=== PATIENT | male | born 1955 | race Caucasian/White ===

== ENCOUNTER 2016-10-26 20:40 | Inpatient (IN) | payer MEDICARE, BC ==
[2016-10-26] MEDS ORDERED: Albuterol 0.083% 2.5 MG/3 ML Neb Soln NEB ONE (21:24)
[2016-10-27] MEDS ORDERED: Furosemide 20 MG Tab PO PRN (00:23)
[2016-10-27] MEDS ORDERED: HYDROmorphone 1 MG/ML Syringe IVPUSH PRN (00:23)
[2016-10-27] MEDS ORDERED: Ipratropium 0.02% 0.5 MG/2.5 ML Neb Soln NEB PRN (00:23)
[2016-10-27] MEDS ORDERED: Docusate Sodium 100 MG Cap PO PRN (00:23)
[2016-10-27] MEDS ORDERED: Zolpidem 5 MG Tab PO PRN (00:23)
[2016-10-27] MEDS ORDERED: Acetaminophen/HYDROcodone 325-5 MG Tab PO PRN (00:23)
[2016-10-27] MEDS ORDERED: LORazepam 2 MG/ML MDV IV PRN (00:23)
[2016-10-27] MEDS ORDERED: Albuterol 0.083% 2.5 MG/3 ML Neb Soln NEB PRN (00:23)
[2016-10-27] MEDS ORDERED: Acetaminophen 325 MG Tab PO PRN (00:23)
[2016-10-27] MEDS ORDERED: Bisacodyl 5 MG Tab PO PRN (00:23)
[2016-10-27] MEDS ORDERED: Ondansetron 4 MG Tab.DIS PO PRN (00:23)
[2016-10-27] MEDS: Sodium Chloride 0.9% 1,000 ML IV SCH ×3 (01:24→22:05)
[2016-10-27] MEDS: Levofloxacin/Dextrose 5%-Water 500 MG in Premix Bag 1 BAG IV SCH (01:26)
[2016-10-27] MEDS ORDERED: Albuterol/Ipratropium 3.0-0.5 MG/3 ML Neb Soln NEB PRN (07:18)
[2016-10-27] MEDS: Albuterol/Ipratropium 3.0-0.5 MG/3 ML Neb Soln NEB SCH ×4 (07:33→21:04)
[2016-10-27] MEDS: Carvedilol 25 MG Tab PO SCH ×2 (08:40→17:45)
[2016-10-27] MEDS: Citalopram 20 MG Tab PO SCH (08:41)
[2016-10-27] MEDS: Enoxaparin 40 MG/0.4 ML Syringe SUBCUT SCH (08:47)
--- NOTE | 2016-10-27 08:49 | CR ---
Chest 2V HISTORY: Pain COMPARISON: Prior CT chest scan 02/19/2016. Plain film 01/31/2016 FINDINGS: Borderline interstitial prominence with tiny pleural effusions blunting the posterior cost ophrenic angles. This may represent mild pulmonary edema. No dense infiltrate. Hyperinflation. Cardi ac size normal. Impression: Slight interstitial prominence with tiny effusions, could represent very minimal pulmonary edema. No dense infiltrate.
[2016-10-27] MEDS ORDERED: methylPREDNISolone Sodium Succinate 125 MG/2 ML SDV IV SCH ×2 (09:00)
[2016-10-27] MEDS ORDERED: Pantoprazole 40 MG Vial IVPUSH SCH (09:00)
--- NOTE | 2016-10-27 09:03 | PCM.HP ---
H&P History of Present Illness - General Date of Service: 10/26/16 Admit Problem/Dx: Admission Diagnosis/Problem Admission Diagnosis/Problem COPD, Severe chronic obstructive pulmonary disease Source of Information: Patient, Family () History Limitations: Reports: Altered mental status - History of Present Illness Initial Comments - Free Text/Narative: COPD with confusion; this is a 60 year old male presents to ER with his , she reports he has been sick for the past 2 to 3 weeks with a bad cold, which has gotten worse. Today noted increase use of oxygen, confusion. His baseline oxygen saturation is about 86% to 88%, today was 83%. Due to his new onset of confusion, increased shortness of breath, worsen oxygen saturation and increase of maintenance oxygen, he was brought to ER. labs; ABG's elveated CO2, decrease O2 chest xray; report pending. no acute infiltrate noted. Onset of Symptoms: Reports: sudden (onset of confusion and worsen shortness of breath today), gradual (respiratory illness for 2 to 3 weeks.) Duration of Symptoms: Reports: Getting worse Location: Reports: chest, generalized Improves with: Reports: None Worsens with: Reports: None Context: Reports: sick contact Associated Symptoms: Reports: confusion, cough, fever/chills, shortness of breath, weakness Back Pain Score (Numeric/FACES): 5 - Related Data Allergies/Adverse Reactions: Allergies Allergy/AdvReac Type Severity Reaction Status Date / Time metformin Allergy Hives Verified 10/26/16 20:48 Penicillins Allergy Cannot Verified 10/26/16 20:48 Remember zolpidem tartrate Allergy Other Verified 10/26/16 20:48 [From Ambien] Home Medications: Home Meds Citalopram Hydrobromide [Citalopram HBr] 20 mg PO QAM 06/23/14 [History] Diazepam 10 mg PO TID 06/23/14 [History] Furosemide 20 mg PO QAM PRN 06/23/14 [History] Pramipexole [Mirapex] 1 mg PO BEDTIME 06/23/14 [History] atorvaSTATin [Lipitor] 40 mg PO BEDTIME 06/23/14 [History] Insulin Glarg,Human.Rec.Analog [Lantus Solostar] 53 unit SQ BEDTIME 06/16/15 [ History] Clopidogrel [Plavix] 75 mg PO QAM 04/05/16 [History] glyBURIDE [Glyburide] 5 mg PO QPM 12/01/15 [History] Carvedilol [Coreg] 25 mg PO BIDMEALS 01/31/16 [History] Past Medical History HEENT History: Reports: Cataract, Impaired vision Cardiovascular History: Reports: Aneurysm, Hypertension Other Cardiovascular History: angiogram-- 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 years Respiratory History: Reports: Bronchitis, recurrent, COPD Gastrointestinal History: Reports: GI bleed Other Gastrointestinal History: throwing up coffee grounds Genitourinary History: Reports: Other (see below) Other Genitourinary History: kidney removed- enlarged Musculoskeletal History: Reports: Back pain, chronic, Osteoarthritis, Other ( see below) Other Musculoskeletal History: herniated disc Neurological History: Reports: Concussion, Vertigo Psychiatric History: Reports: Anxiety, Depression Endocrine/Metabolic History: Reports: Diabetes, type II, Obesity/BMI 30+ - Infectious Disease History Infectious Disease History: Reports: Chicken pox - Past Surgical History Head Surgeries/Procedures: Reports: None Other HEENT Surgeries/Procedures: thyroid bx Other Cardiovascular Surgeries/Procedures: angiogram CT with dye to check AAA enlarging 02/19/16 GI Surgical History: Reports: Hernia repair/other Male Surgical History: Reports: Nephrectomy Endocrine Surgical History: Reports: Thyroid biopsy Other Endocrine Surgeries/Procedures: thyroid bx Other Musculoskeletal Surgeries/Procedures:: rotator cuff x2 Social & Family History - Tobacco Use Smoking Status *Q: Former Smoker Years of Tobacco use: 20 Packs/Tins Daily: 1 Used Tobacco, but Quit: Yes Month Tobacco Last Used: december Second Hand Smoke Exposure: No - Caffeine Use Caffeine Use: Reports: None - Alcohol Use Days Per Week of Alcohol Use: 0 - Recreational Drug Use Recreational Drug Use: No H&P Review of Systems - Review of Systems: Review Of Systems: Unable To Obtain General: Reports: fever (per patient felt warm and flushed all day), weakness, decreased appetite HEENT: Reports: sinus congestion Pulmonary: Reports: shortness of breath, cough Cardiovascular: Reports: dyspnea on exertion, orthopnea Gastrointestinal: Reports: No symptoms Genitourinary: Reports: no symptoms Musculoskeletal: Reports: no symptoms Skin: Reports: change in color Psychiatric: Reports: confusion Neurological: Reports: confusion Hematologic/Lymphatic: Reports: no symptoms Immunologic: Reports: no symptoms Exam - Exam Exam: See Below - Vital Signs Vital Signs: Last Vital Signs Temp 36.2 C 10/27/16 08:35 Pulse 67 10/27/16 08:40 Resp 20 10/27/16 08:35 BP 130/74 10/27/16 08:40 Pulse Ox 89 L 10/27/16 08:35 Weight: 150.956 kg - Exam Quality Assessment: supplemental oxygen, DVT prophylaxis General: alert, cooperative, moderate distress HEENT: PERRLA, Conjunctiva clear, EACs clear, Hearing intact, Mucosa moist & pink, Nares patent, Normal nasal septum, Posterior pharynx clear, Pupils equal, Pupils reactive, TMs clear Neck: supple, trachea midline Lungs: Decreased breath sounds (very decreased airway clearance., no wheezing, crackles or rhonchi noted.) Cardiovascular: regular rate, regular rhythm, normal S1, normal S2, other ( heart tones distant) Abdomen: normal bowel sounds, soft (Male) Exam: Deferred Rectal (Males) Exam: Deferred Extremities: normal inspection Skin: warm, dry, intact, other (pallor noted) Neurological: reflexes equal bilateral Neuro Extensive - Mental Status: alert, inattentive Psychiatric: alert, other (short term memory impaired. care home intact) - Patient Data Lab Results last 24 hrs: Laboratory Results - last 24 hr 10/27/16 10/27/16 Range/Units 05:00 05:00 WBC 10.7 (4.5-11.0) K/uL RBC 4.51 (4.30-5.90) M/uL Hgb 14.4 (12.0-15.0) g/dL Hct 45.0 (40.0-54.0) % MCV 100 H (80-98) fL MCH 32 H (27-31) pg MCHC 32 (32-36) % Plt Count 196 (150-400) K/uL Neut % (Auto) 91 H (36-66) % Lymph % (Auto) 7 L (24-44) % [place] % (Auto) 2 (2-6) % Eos % (Auto) 1 L (2-4) % Baso % (Auto) 0 (0-1) % Sodium 137 L (140-148) mmol/L Potassium 4.6 (3.6-5.2) mmol/L Chloride 100 (100-108) mmol/L Carbon Dioxide 34 H (21-32) mmol/L Anion Gap 7.6 (5.0-14.0) mmol/L BUN 14 (7-18) mg/dL Creatinine 0.9 (0.8-1.3) mg/dL Est Cr Clr Drug Dosing 92.96 mL/min Estimated GFR (MDRD) > 60 (>60) Glucose 172 H (74-106) mg/dL Calcium 8.1 L (8.5-10.1) mg/dL Result Diagrams: 10/27/16 05:00 10/27/16 05:00 *Q Meaningful Use (ADM) - VTE *Q VTE Criteria *Q: - Stroke *Q Stroke Criteria *Q: - AMI *Q AMI Criteria *Q: - Problem List (1) COPD exacerbation SNOMED Code(s): 756078204, 363567378 ICD Code: J44.1 - CHRONIC OBSTRUCTIVE PULMONARY DISEASE W (ACUTE) EXACERBATION Status: Acute Priority: High Current Visit: Yes (2) Diabetes mellitus, new onset SNOMED Code(s): 764879290 ICD Code: E11.9 - TYPE 2 DIABETES MELLITUS WITHOUT COMPLICATIONS Status: Chronic Priority: High Current Visit: No (3) Thoracic aortic aneurysm SNOMED Code(s): 772091169 ICD Code: I71.2 - THORACIC AORTIC ANEURYSM, WITHOUT RUPTURE Status: Chronic Priority: Medium Current Visit: No Qualifiers: Presence of rupture: without rupture Qualified Code(s): I71.2 - Thoracic aortic aneurysm, without rupture (4) Congestive heart failure (CHF) SNOMED Code(s): 57334495 ICD Code: I50.9 - HEART FAILURE, UNSPECIFIED Status: Acute Current Visit : Yes Qualifiers: Congestive heart failure type: unspecified congestive heart failure type Congestive heart failure chronicity: chronic Qualified Code(s): I50.9 - Heart failure, unspecified Problem List Initiated/Reviewed/Updated: Yes Orders Last 24hrs: Active Orders 24 hr Category Date Time Status Patient Status [ADT] Routine ADT 10/27/16 00:23 Active Communication Order [RC] ASDIRECTED Care 10/27/16 00:23 Active Communication Order [RC] ASDIRECTED Care 10/27/16 01:54 Active Intake and Output [RC] QSHIFT Care 10/27/16 00:23 Active Notify Provider Vital Signs [RC] ASDIRECTED Care 10/27/16 00:23 Active Notify Provider [RC] PRN Care 10/27/16 00:23 Active Oxygen Therapy [RC] PRN Care 10/27/16 00:23 Active Pulse Oximetry [RC] CONTINUOUS Care 10/27/16 00:23 Active Up ad Mia [RC] ASDIRECTED Care 10/27/16 00:23 Active VTE/DVT Education [RC] Per Unit Routine Care 10/27/16 00:23 Active Vital Signs [RC] Q4H Care 10/27/16 00:23 Active Respiratory Care Assess and Treatment [CONS] Routine Cons 10/27/16 00:23 Active 2 Gram Sodium Diet [DIET] Diet 10/27/16 Breakfast Active Consistent Carbohydrate Diet [DIET] Diet 10/27/16 Breakfast Active GLUCOSE POC LAB TO COLLECT [POC] QIDACANDBED Lab 10/27/16 11:30 Ordered GLUCOSE POC LAB TO COLLECT [POC] QIDACANDBED Lab 10/27/16 16:30 Ordered GLUCOSE POC LAB TO COLLECT [POC] QIDACANDBED Lab 10/27/16 21:00 Ordered Acetaminophen [Tylenol] Med 10/27/16 00:23 Active 650 mg PO Q4H PRN Acetaminophen/HYDROcodone [[place] 325-5 MG] Med 10/27/16 00:23 Active 2 tab PO Q4H PRN Albuterol [Proventil Neb Soln] Med 10/27/16 00:23 Active 2.5 mg NEB Q4H PRN Albuterol/Ipratropium [DuoNeb 3.0-0.5 MG/3 ML] Med 10/27/16 07:18 Active 3 ml NEB ASDIRECTED PRN Albuterol/Ipratropium [DuoNeb 3.0-0.5 MG/3 ML] Med 10/27/16 07:00 Active 3 ml NEB QIDRT Bisacodyl [Dulcolax] Med 10/27/16 00:23 Active 5 mg PO DAILY PRN Carvedilol [Coreg] Med 10/27/16 08:00 Active 25 mg PO BIDMEALS Citalopram [Celexa] Med 10/27/16 09:00 Active 20 mg PO QAM Diazepam [Valium] Med 10/27/16 09:00 Active 10 mg PO TID Docusate Sodium [Colace] Med 10/27/16 00:23 Active 100 mg PO BID PRN Enoxaparin [Lovenox] Med 10/27/16 09:00 Active 40 mg SUBCUT DAILY Furosemide [Lasix] Med 10/27/16 00:23 Active 20 mg PO QAM PRN HYDROmorphone [Dilaudid] Med 10/27/16 00:23 Active 1 mg IVPUSH Q2H PRN Insulin Detemir [Levemir] Med 10/27/16 21:00 Active 53 unit SUBCUT BEDTIME Ipratropium [Atrovent] Med 10/27/16 00:23 Active 0.2 mg NEB Q4H PRN LORazepam [Ativan] Med 10/27/16 00:23 Active 1 mg IV Q6H PRN Levofloxacin/Dextrose 5%-Water [Levaquin in D5W 500 MG/ Med 10/27/16 01:00 Active 100 ML] 500 mg Premix Bag 1 bag IV Q24H Ondansetron [Zofran ODT] Med 10/27/16 00:23 Active 4 mg PO Q6H PRN Pantoprazole [Protonix IV] Med 10/27/16 09:00 Ordered 40 mg IVPUSH DAILY Pramipexole [Mirapex] Med 10/27/16 21:00 Active 1 mg PO BEDTIME Sodium Chloride 0.9% [Normal Saline] 1,000 ml Med 10/27/16 00:23 Active IV ASDIRECTED atorvaSTATin [Lipitor] Med 10/27/16 21:00 Active 40 mg PO BEDTIME glyBURIDE [Micronase] Med 10/27/16 17:00 Active 5 mg PO QPM methylPREDNISolone Sod Succ [Solu-MEDROL] Med 10/27/16 09:00 Active 125 mg IV Q8H Blood Culture x2 Reflex Set [OM.PC] Urgent Oth 10/27/16 00:23 Ordered Sequential Compression Device [OM.PC] Per Unit Routine Oth 10/27/16 00:23 Ordered Resuscitation Status Routine Resus Stat 10/26/16 23:50 Ordered Medication Orders Acetaminophen (Tylenol) 650 mg PO Q4H PRN PRN Reason: Pain (Mild 1-3)/fever Acetaminophen/Hydrocodone Bitart ([place] 325-5 Mg) 2 tab PO Q4H PRN PRN Reason: Pain (moderate 4-6) Albuterol (Proventil Neb Soln) 2.5 mg NEB Q4H PRN PRN Reason: Shortness Of Breath;wheezing Albuterol/Ipratropium (Duoneb 3.0-0.5 Mg/3 Ml) 3 ml NEB QIDRT [facility] Last Admin: 10/27/16 07:33 Dose: 3 ml Albuterol/Ipratropium (Duoneb 3.0-0.5 Mg/3 Ml) 3 ml NEB ASDIRECTED PRN PRN Reason: SHORTNESS OF BREATH Atorvastatin Calcium (Lipitor) 40 mg PO BEDTIME [facility] Bisacodyl (Dulcolax) 5 mg PO DAILY PRN PRN Reason: Constipation Carvedilol (Coreg) 25 mg PO BIDMEALS [facility] Last Admin: 10/27/16 08:40 Dose: 25 mg Citalopram Hydrobromide (Celexa) 20 mg PO QAM [facility] Last Admin: 10/27/16 08:41 Dose: 20 mg Diazepam (Valium.) 10 mg PO TID [facility] Docusate Sodium (Colace) 100 mg PO BID PRN PRN Reason: Constipation Enoxaparin Sodium (Lovenox) 40 mg SUBCUT DAILY [facility] Last Admin: 10/27/16 08:47 Dose: 40 mg Furosemide (Lasix) 20 mg PO QAM PRN PRN Reason: Other Glyburide (Micronase) 5 mg PO QPM [facility] Hydromorphone HCl (Dilaudid) 1 mg IVPUSH Q2H PRN PRN Reason: Pain Sodium Chloride (Normal Saline) 1,000 mls @ 100 mls/hr IV ASDIRECTED [facility] Last Admin: 10/27/16 01:24 Dose: 100 mls/hr Levofloxacin/Dextrose 500 mg/ (Premix) 100 mls @ 100 mls/hr IV Q24H [facility] Stop: 11/03/16 01:01 Last Admin: 10/27/16 01:26 Dose: 100 mls/hr Insulin Detemir (Levemir) 53 unit SUBCUT BEDTIME [facility] Ipratropium [place] (Atrovent) 0.2 mg NEB Q4H PRN PRN Reason: Shortness of Breath/Wheezing Lorazepam (Ativan) 1 mg IV Q6H PRN PRN Reason: Nausea/Vomiting Methylprednisolone Sodium Succinate (Solu-Medrol) 125 mg IV Q8H [facility] Last Admin: 10/27/16 08:52 Dose: 125 mg Ondansetron HCl (Zofran Odt) 4 mg PO Q6H PRN PRN Reason: Nausea able to take PO Pantoprazole Sodium (Protonix Iv) 40 mg IVPUSH DAILY [facility] Pramipexole Dihydrochloride (Mirapex) 1 mg PO BEDTIME [facility] Assessment/Plan Comment:: ASSESSMENT / PLAN -This is a 60 year old male present to ER with complaints of worsen shortness of breath and confusion COPD with confusion; this is a 60 year old male presents to ER with his , she reports he has been sick for the past 2 to 3 weeks with a bad cold, which has gotten worse. Today noted increase use of oxygen, confusion. His baseline oxygen saturation is about 86% to 88%, today was 83%. Due to his new onset of confusion, increased shortness of breath, worsen oxygen saturation and increase of maintenance oxygen, he was brought to ER. labs; ABG's elveated CO2, decrease O2 chest xray; report pending. no acute infiltrate noted. Plan: COPD exacerbation -Admit to [address] [place] [address] for further monitoring -order Bi-Pap -Solu-medrol 125mg IV every 8 hours -albuterol nebulizer -duo nebs -Levaquin 50mg IV every 24 hours, blood cultures pending -IV fluids at 125ml/hr -a.m. labs: CBC, BMP, will need repeat ABG's CHF -Telemetry -continue diuretics -Advise to notify nurses of any chest pain or other symptoms Diabetes Type 2 -sliding scale insulin; medium coverage -blood glucose with meals and hs Thoracic Anurysm -continue to monitor, stable Maintenance issues -Orders home meds: -Nutrition: diabetic diet -Mane catheter not indicated at this time -DVT: Lovenox 40mg subcut daily -GI Prophalaxis; Protonix 40 mg daily CODE STATUS: Full Admission status: Admit to [address] [place] [address] Admission justification. This patient will be admitted for inpatient services and is medically appropriate meeting medical necessity for inpatient admission as outlined in my documentation. I reasonably expect the patient will require inpatient services that span. Time over 2 midnights. I reasonably expect this patient to be discharged or transferred within 96 hours after admission to the critical access hospital. Disposition; home with , Jayashree Barcenas Primary care provider: Dr. Garcia
[2016-10-27] MEDS: Diazepam 5 MG Tab PO SCH ×3 (10:07→21:00)
[2016-10-27] MEDS: Insulin Aspart 100 Units/ML 3 ML Pen SUBCUT SCH ×3 (10:08→21:13)
[2016-10-27] MEDS: oxyCODONE 5 MG Tab PO PRN ×3 (10:10→18:54)
--- NOTE | 2016-10-27 11:21 | PCM.PN ---
- General Info Date of Service: 10/27/16 Functional Status: Reports: pain controlled, tolerating diet - Review of Systems General: Reports: weakness Pulmonary: Reports: shortness of breath, cough, sputum Neurological: Reports: confusion Systems Review Comment:: Philip was admitted last night with acute hypoxic and hypercapnic respiratory failure. It was not entirely clear if this was infectious or do to congestive heart failure. Further questioning this morning suggests respiratory infection with possible subtle pneumonia versus bronchitis. Subjective fevers, increased cough and sputum have been noted at home. He does have chronic lower extremity edema but this appears to be stable. ABGs have improved this morning with PCO2 down to 51. PH is nearly normal suggesting this may be close to his baseline. He feels better but still feels a little short of breath and weak. - Patient Data Vitals - most recent: Last Vital Signs Temp 36.4 C 10/27/16 10:31 Pulse 59 L 10/27/16 11:16 Resp 18 10/27/16 10:31 BP 141/75 H 10/27/16 10:31 Pulse Ox 86 L 10/27/16 11:16 Weight - most recent: 150.956 kg I&O - last 24 hours: Intake & Output 10/26/16 10/27/16 10/27/16 22:59 06:59 14:59 Intake Total 493 240 Output Total 500 Balance -7 240 Lab Results last 24 hrs: Laboratory Results - last 24 hr 10/27/16 10/27/16 10/27/16 Range/Units 05:00 05:00 09:28 WBC 10.7 (4.5-11.0) K/uL RBC 4.51 (4.30-5.90) M/uL Hgb 14.4 (12.0-15.0) g/dL Hct 45.0 (40.0-54.0) % MCV 100 H (80-98) fL MCH 32 H (27-31) pg MCHC 32 (32-36) % Plt Count 196 (150-400) K/uL Neut % (Auto) 91 H (36-66) % Lymph % (Auto) 7 L (24-44) % [place] % (Auto) 2 (2-6) % Eos % (Auto) 1 L (2-4) % Baso % (Auto) 0 (0-1) % Puncture Site Rt radial ABG pH 7.385 (7.350-7.450) ABG pCO2 51.7 H (35.0-42.0) mmHg ABG pO2 51.9 L (75.0-100.0) mmHg ABG HCO3 30.3 H (22.0-26.0) mmol/L ABG Total CO2 26.7 (23.0-27.0) mmol/L ABG O2 Saturation 85.2 L (95.0-98.0) % ABG O2 Content 16.8 (15.0-23.0) %vol ABG Base Excess 4.4 mm/L ABG Hemoglobin 14.4 (13.5-18.0) g/dL ABG Oxyhemoglobin 82.9 % ABG Carboxyhemoglobin 2.3 H (0.0-1.6) % ABG Methemoglobin 0.4 % Chase Test Passed O2 Delivery Device Nasal cannula Oxygen Flow Rate 2 L Sodium 137 L (140-148) mmol/L Potassium 4.6 (3.6-5.2) mmol/L Chloride 100 (100-108) mmol/L Carbon Dioxide 34 H (21-32) mmol/L Anion Gap 7.6 (5.0-14.0) mmol/L BUN 14 (7-18) mg/dL Creatinine 0.9 (0.8-1.3) mg/dL Est Cr Clr Drug Dosing 92.96 mL/min Estimated GFR (MDRD) > 60 (>60) Glucose 172 H (74-106) mg/dL Calcium 8.1 L (8.5-10.1) mg/dL Med Orders - Current: Current Medications Acetaminophen (Tylenol) 650 mg PO Q4H PRN PRN Reason: Pain (Mild 1-3)/fever Albuterol (Proventil Neb Soln) 2.5 mg NEB Q4H PRN PRN Reason: Shortness Of Breath;wheezing Albuterol/Ipratropium (Duoneb 3.0-0.5 Mg/3 Ml) 3 ml NEB QIDRT [facility] Last Admin: 10/27/16 11:16 Dose: 3 ml Albuterol/Ipratropium (Duoneb 3.0-0.5 Mg/3 Ml) 3 ml NEB ASDIRECTED PRN PRN Reason: SHORTNESS OF BREATH Atorvastatin Calcium (Lipitor) 40 mg PO BEDTIME [facility] Bisacodyl (Dulcolax) 5 mg PO DAILY PRN PRN Reason: Constipation Carvedilol (Coreg) 25 mg PO BIDMEALS [facility] Last Admin: 10/27/16 08:40 Dose: 25 mg Citalopram Hydrobromide (Celexa) 20 mg PO QAM [facility] Last Admin: 10/27/16 08:41 Dose: 20 mg Diazepam (Valium.) 10 mg PO TID [facility] Last Admin: 10/27/16 10:07 Dose: 10 mg Docusate Sodium (Colace) 100 mg PO BID PRN PRN Reason: Constipation Enoxaparin Sodium (Lovenox) 40 mg SUBCUT DAILY [facility] Last Admin: 10/27/16 08:47 Dose: 40 mg Furosemide (Lasix) 20 mg PO QAM PRN PRN Reason: Other Glyburide (Micronase) 5 mg PO QPM [facility] Hydromorphone HCl (Dilaudid) 1 mg IVPUSH Q2H PRN PRN Reason: Pain Sodium Chloride (Normal Saline) 1,000 mls @ 100 mls/hr IV ASDIRECTED [facility] Last Admin: 10/27/16 01:24 Dose: 100 mls/hr Levofloxacin/Dextrose 500 mg/ (Premix) 100 mls @ 100 mls/hr IV Q24H [facility] Stop: 11/03/16 01:01 Last Admin: 10/27/16 01:26 Dose: 100 mls/hr Insulin Aspart (Novolog) 0 unit SUBCUT QIDACANDBED [facility] PRN Reason: Protocol Last Admin: 10/27/16 10:08 Dose: 6 unit Insulin Detemir (Levemir) 53 unit SUBCUT BEDTIME [facility] Ipratropium [place] (Atrovent) 0.2 mg NEB Q4H PRN PRN Reason: Shortness of Breath/Wheezing Lorazepam (Ativan) 1 mg IV Q6H PRN PRN Reason: Nausea/Vomiting Methylprednisolone Sodium Succinate (Solu-Medrol) 125 mg IV Q8H [facility] Last Admin: 10/27/16 08:52 Dose: 125 mg Ondansetron HCl (Zofran Odt) 4 mg PO Q6H PRN PRN Reason: Nausea able to take PO Oxycodone HCl (Oxycodone) 10 mg PO Q4H PRN PRN Reason: Pain Last Admin: 10/27/16 10:10 Dose: 10 mg Pantoprazole Sodium (Protonix) 40 mg PO ACBREAKFAST [facility] Pramipexole Dihydrochloride (Mirapex) 1 mg PO BEDTIME [facility] Discontinued Medications Acetaminophen/Hydrocodone Bitart ([place] 325-5 Mg) 2 tab PO Q4H PRN PRN Reason: Pain (moderate 4-6) Albuterol (Proventil Neb Soln) 2.5 mg NEB ONETIME ONE Stop: 10/26/16 21:25 Last Admin: 10/26/16 21:38 Dose: 2.5 mg Methylprednisolone Sodium Succinate (Solu-Medrol) 125 mg IV Q8H [facility] Last Admin: 10/27/16 01:24 Dose: 125 mg Pantoprazole Sodium (Protonix Iv) 40 mg IVPUSH DAILY@0730 [facility] Stop: 10/27/16 10:00 Last Admin: 10/27/16 10:07 Dose: 40 mg - Exam Quality Assessment: supplemental oxygen General: alert, oriented, cooperative, no acute distress Neck: supple Lungs: Clear to auscultation, Normal respiratory effort Cardiovascular: regular rate, regular rhythm, murmurs (llsb) Abdomen: soft, no distension Extremities: edema (pitting edema both ankles with chronic venous stasis) Skin: warm, dry Psy/Mental Status: alert, normal affect - Problem List & Annotations (1) Acute bronchitis SNOMED Code(s): 80907056 Code(s): J20.9 - ACUTE BRONCHITIS, UNSPECIFIED Status: Acute Current Visit: Yes Qualifiers: Bronchitis organism: unspecified organism Qualified Code(s): J20.9 - Acute bronchitis, unspecified (2) Acute respiratory failure with hypoxia and hypercapnia SNOMED Code(s): 39448275, 093416842 Code(s): J96.01 - ACUTE RESPIRATORY FAILURE WITH HYPOXIA; J96.02 - ACUTE RESPIRATORY FAILURE WITH HYPERCAPNIA Status: Acute Current Visit: Yes (3) Insulin dependent diabetes mellitus SNOMED Code(s): 26988321 Code(s): E11.9 - TYPE 2 DIABETES MELLITUS WITHOUT COMPLICATIONS; 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 OF INSULIN Status: Chronic Current Visit: Yes (4) Morbid obesity with BMI of 45.0-49.9, adult SNOMED Code(s): 728394931 Code(s): E66.01 - MORBID (SEVERE) OBESITY DUE TO EXCESS CALORIES; Z68.42 - BODY MASS INDEX (BMI) 45.0-49.9, ADULT Status: Chronic Current Visit: No - Problem List Review Problem List Initiated/Reviewed/Updated: Yes - My Orders Last 24 Hours: My Active Orders 10/27/16 09:28 oxyCODONE 10 mg PO Q4H PRN 10/27/16 09:29 Consult to Dietary [Consult to Skein Winding Operator] [CONS] Routine 10/27/16 11:00 Insulin Aspart [NovoLOG] See Protocol SUBCUT QIDACANDBED 10/28/16 05:00 BASIC METABOLIC PANEL,BMP [CHEM] Timed BLOOD GAS ARTERIAL [BG] Timed CBC W/O DIFF,HEMOGRAM [HEME] Timed (1) - Plan Plan:: ASSESSMENT / PLAN Acute bronchitis - I cannot definitively identify an infiltrate on the chest x- ray but at the very least he has bronchitis with acute hypoxic and hypercapnic respiratory failure. No significant wheezing at this time. probably some contribution to his respiratory failure from obstructive sleep apnea versus possibly a hypoventilation syndrome. Confusion probably combination of hypercapnia and infection. -Continue levofloxacin -Supplement oxygen as needed -Nebulizers Heart failure with preserved ejection fraction - long-standing history with chronic lower tremor the edema. No evidence for acute exacerbation. -Telemetry -continue medical management -continue diuretics Diabetes Type 2 - suboptimally controlled. -sliding scale insulin; medium coverage -continue all meds -blood glucose with meals and bedtime Maintenance issues -Nutrition: diabetic diet -Mane catheter not indicated at this time -DVT: enoxaparin 40mg subcut daily -GI Prophalaxis; pantoprazole 40 mg daily Disposition; home with , Jayashree Barcenas Primary care provider: Dr. Jose Kc M.D.
[2016-10-27] MEDS: methylPREDNISolone Sodium Succinate 125 MG/2 ML SDV IV SCH (17:45)
[2016-10-27] MEDS: atorvaSTATin 20 MG Tab PO SCH (20:53)
[2016-10-27] MEDS: Pramipexole 0.5 MG Tab PO SCH (20:53)
[2016-10-27] MEDS ORDERED: Insulin Detemir 100 Units/ML 3 ML Pen SUBCUT SCH (21:00)
[2016-10-27] MEDS: Insulin Detemir 100 Units/ML 3 ML Pen SUBCUT SCH (21:12)
[2016-10-28] MEDS: methylPREDNISolone Sodium Succinate 125 MG/2 ML SDV IV SCH ×2 (00:54→08:32)
[2016-10-28] MEDS: Levofloxacin/Dextrose 5%-Water 500 MG in Premix Bag 1 BAG IV SCH (00:54)
[2016-10-28] MEDS: oxyCODONE 5 MG Tab PO PRN ×5 (03:00→21:35)
[2016-10-28] MEDS: Albuterol/Ipratropium 3.0-0.5 MG/3 ML Neb Soln NEB SCH ×4 (07:15→21:01)
[2016-10-28] MEDS: Carvedilol 25 MG Tab PO SCH ×2 (07:23→16:46)
[2016-10-28] MEDS: Pantoprazole 40 MG Tab.CR PO SCH (07:23)
[2016-10-28] MEDS: Insulin Aspart 100 Units/ML 3 ML Pen SUBCUT SCH ×4 (07:26→21:36)
[2016-10-28] MEDS: Enoxaparin 40 MG/0.4 ML Syringe SUBCUT SCH (08:32)
[2016-10-28] MEDS: Citalopram 20 MG Tab PO SCH (08:32)
[2016-10-28] MEDS: Diazepam 5 MG Tab PO SCH ×3 (08:36→21:01)
[2016-10-28] MEDS: Sodium Chloride 0.9% 1,000 ML IV SCH (11:36)
--- NOTE | 2016-10-28 12:18 | PCM.PN ---
- General Info Date of Service: 10/28/16 Functional Status: Reports: pain controlled, tolerating diet, ambulating - Review of Systems Pulmonary: Reports: shortness of breath Musculoskeletal: Reports: back pain Systems Review Comment:: no acute events overnight. Respiratory status seems a little bit better today. Patient is more clear and more interactive today. Mild intermittent cough. He does not feel shortness of breath with activity. He is tolerating his current antibiotic. Lower extremity edema is slightly increased from yesterday. Appetite has been okay.patient continues to report significant pain in his back into his knee. He does endorse that these are chronic issues and have been painful for some time but does not have access to pain medications. - Patient Data Vitals - most recent: Last Vital Signs Temp 36.1 C 10/28/16 11:03 Pulse 64 10/28/16 11:09 Resp 18 10/28/16 07:10 BP 150/83 H 10/28/16 11:03 Pulse Ox 90 L 10/28/16 11:09 Weight - most recent: 150.956 kg I&O - last 24 hours: Intake & Output 10/27/16 10/28/16 10/28/16 22:59 06:59 14:59 Intake Total 1420 1514 240 Output Total 1525 1125 450 Balance -105 389 -210 Lab Results last 24 hrs: Laboratory Results - last 24 hr 10/28/16 10/28/16 10/28/16 Range/Units 05:00 05:00 05:00 WBC 9.0 (4.5-11.0) K/uL RBC 4.26 L (4.30-5.90) M/uL Hgb 13.4 (12.0-15.0) g/dL Hct 42.0 (40.0-54.0) % MCV 99 H (80-98) fL MCH 32 H (27-31) pg MCHC 32 (32-36) % Plt Count 189 (150-400) K/uL Puncture Site Lt radial ABG pH 7.338 L (7.350-7.450) ABG pCO2 58.6 H (35.0-42.0) mmHg ABG pO2 56.8 L (75.0-100.0) mmHg ABG HCO3 30.6 H (22.0-26.0) mmol/L ABG Total CO2 27.6 H (23.0-27.0) mmol/L ABG O2 Saturation 86.2 L (95.0-98.0) % ABG O2 Content 16.1 (15.0-23.0) %vol ABG Base Excess 3.7 mm/L ABG Hemoglobin 13.6 (13.5-18.0) g/dL ABG Oxyhemoglobin 84.0 % ABG Carboxyhemoglobin 1.8 H (0.0-1.6) % ABG Methemoglobin 0.7 % Chase Test Passed O2 Delivery Device Nasal cannula Oxygen Flow Rate 2 L Sodium 137 L (140-148) mmol/L Potassium 4.7 (3.6-5.2) mmol/L Chloride 101 (100-108) mmol/L Carbon Dioxide 32 (21-32) mmol/L Anion Gap 8.7 (5.0-14.0) mmol/L BUN 18 (7-18) mg/dL Creatinine 0.9 (0.8-1.3) mg/dL Est Cr Clr Drug Dosing 90.12 mL/min Estimated GFR (MDRD) > 60 (>60) Glucose 263 H (74-106) mg/dL Calcium 7.9 L (8.5-10.1) mg/dL Med Orders - Current: Current Medications Acetaminophen (Tylenol) 650 mg PO Q4H PRN PRN Reason: Pain (Mild 1-3)/fever Albuterol (Proventil Neb Soln) 2.5 mg NEB Q4H PRN PRN Reason: Shortness Of Breath;wheezing Albuterol/Ipratropium (Duoneb 3.0-0.5 Mg/3 Ml) 3 ml NEB QIDRT [facility] Last Admin: 10/28/16 11:08 Dose: 3 ml Albuterol/Ipratropium (Duoneb 3.0-0.5 Mg/3 Ml) 3 ml NEB ASDIRECTED PRN PRN Reason: SHORTNESS OF BREATH Atorvastatin Calcium (Lipitor) 40 mg PO BEDTIME [facility] Last Admin: 10/27/16 20:53 Dose: 40 mg Bisacodyl (Dulcolax) 5 mg PO DAILY PRN PRN Reason: Constipation Carvedilol (Coreg) 25 mg PO BIDMEALS [facility] Last Admin: 10/28/16 07:23 Dose: 25 mg Citalopram Hydrobromide (Celexa) 20 mg PO QAM [facility] Last Admin: 10/28/16 08:32 Dose: 20 mg Diazepam (Valium.) 10 mg PO TID [facility] Last Admin: 10/28/16 08:36 Dose: 10 mg Docusate Sodium (Colace) 100 mg PO BID PRN PRN Reason: Constipation Enoxaparin Sodium (Lovenox) 40 mg SUBCUT DAILY [facility] Last Admin: 10/28/16 08:32 Dose: 40 mg Furosemide (Lasix) 20 mg PO QAM PRN PRN Reason: Other Glyburide (Micronase) 5 mg PO QPM [facility] Last Admin: 10/27/16 17:45 Dose: 5 mg Levofloxacin/Dextrose 500 mg/ (Premix) 100 mls @ 100 mls/hr IV Q24H [facility] Stop: 11/03/16 01:01 Last Admin: 10/28/16 00:54 Dose: 100 mls/hr Insulin Aspart (Novolog) 0 unit SUBCUT QIDACANDBED [facility] PRN Reason: Protocol Last Admin: 10/28/16 11:37 Dose: 8 unit Insulin Detemir (Levemir) 53 unit SUBCUT BEDTIME [facility] Last Admin: 10/27/16 21:12 Dose: 53 units Ipratropium [place] (Atrovent) 0.2 mg NEB Q4H PRN PRN Reason: Shortness of Breath/Wheezing Lorazepam (Ativan) 1 mg IV Q6H PRN PRN Reason: Nausea/Vomiting Ondansetron HCl (Zofran Odt) 4 mg PO Q6H PRN PRN Reason: Nausea able to take PO Oxycodone HCl (Oxycodone) 10 mg PO Q4H PRN PRN Reason: Pain Last Admin: 10/28/16 12:13 Dose: 10 mg Pantoprazole Sodium (Protonix) 40 mg PO ACBREAKFAST [facility] Last Admin: 10/28/16 07:23 Dose: 40 mg Pramipexole Dihydrochloride (Mirapex) 1 mg PO BEDTIME [facility] Last Admin: 10/27/16 20:53 Dose: 1 mg Discontinued Medications Acetaminophen/Hydrocodone Bitart ([place] 325-5 Mg) 2 tab PO Q4H PRN PRN Reason: Pain (moderate 4-6) Albuterol (Proventil Neb Soln) 2.5 mg NEB ONETIME ONE Stop: 10/26/16 21:25 Last Admin: 10/26/16 21:38 Dose: 2.5 mg Hydromorphone HCl (Dilaudid) 1 mg IVPUSH Q2H PRN PRN Reason: Pain Last Admin: 10/27/16 21:05 Dose: 1 mg Sodium Chloride (Normal Saline) 1,000 mls @ 100 mls/hr IV ASDIRECTED [facility] Last Admin: 10/28/16 11:36 Dose: 100 mls/hr Methylprednisolone Sodium Succinate (Solu-Medrol) 125 mg IV Q8H [facility] Last Admin: 10/27/16 01:24 Dose: 125 mg Methylprednisolone Sodium Succinate (Solu-Medrol) 125 mg IV Q8H [facility] Last Admin: 10/27/16 08:52 Dose: 125 mg Methylprednisolone Sodium Succinate (Solu-Medrol) 62.5 mg IV Q8H [facility] Last Admin: 10/28/16 08:32 Dose: 62.5 mg Pantoprazole Sodium (Protonix Iv) 40 mg IVPUSH DAILY@0730 [facility] Stop: 10/27/16 10:00 Last Admin: 10/27/16 10:07 Dose: 40 mg - Exam Quality Assessment: supplemental oxygen General: alert, oriented, cooperative, no acute distress Neck: supple Lungs: Clear to auscultation, Normal respiratory effort Cardiovascular: regular rate, regular rhythm, murmurs Extremities: no cyanosis, edema (pitting lower ext edema to the mid oden bilaterally ) Skin: warm, dry Psy/Mental Status: alert, normal affect - Problem List & Annotations (1) Acute bronchitis SNOMED Code(s): 06594840 Code(s): J20.9 - ACUTE BRONCHITIS, UNSPECIFIED Status: Acute Current Visit: Yes Qualifiers: Bronchitis organism: unspecified organism Qualified Code(s): J20.9 - Acute bronchitis, unspecified (2) Acute respiratory failure with hypoxia and hypercapnia SNOMED Code(s): 41017530, 964988980 Code(s): J96.01 - ACUTE RESPIRATORY FAILURE WITH HYPOXIA; J96.02 - ACUTE RESPIRATORY FAILURE WITH HYPERCAPNIA Status: Acute Current Visit: Yes (3) Insulin dependent diabetes mellitus SNOMED Code(s): 21171362 Code(s): E11.9 - TYPE 2 DIABETES MELLITUS WITHOUT COMPLICATIONS; Z79.4 - NURSING HOME (CURRENT) USE OF INSULIN Status: Chronic Current Visit: Yes (4) Morbid obesity with BMI of 45.0-49.9, adult SNOMED Code(s): 795255030 Code(s): E66.01 - MORBID (SEVERE) OBESITY DUE TO EXCESS CALORIES; Z68.42 - BODY MASS INDEX (BMI) 45.0-49.9, ADULT Status: Chronic Current Visit: No - Problem List Review Problem List Initiated/Reviewed/Updated: Yes - My Orders Last 24 Hours: My Active Orders 10/27/16 16:56 Discontinue Telemetry Monitoring [Cardiac Monitoring Discontinue] [RC] Click to Edit 10/28/16 09:27 RT Acapella [RESPCARE] Routine 10/28/16 12:13 Furosemide [Lasix] 20 mg IVPUSH NOW ONE 10/28/16 12:14 Convert IV to Saline Lock [OM.PC] Routine 10/28/16 16:30 predniSONE 20 mg PO BIDAC 10/29/16 05:00 BLOOD GAS ARTERIAL [BG] Timed - Plan Plan:: ASSESSMENT / PLAN Acute bronchitis with mild COPD exacerbation - I cannot definitively identify an infiltrate on the chest x-ray but at the very least he has bronchitis with acute hypoxic and hypercapnic respiratory failure. clinically improved. Still requiring supplemental oxygen. -Continue levofloxacin -cont steroids -Supplement oxygen as needed -Nebulizers Heart failure with preserved ejection fraction - long-standing history with chronic lower extremity edema. No evidence for acute exacerbation. -continue medical management -continue diuretics Diabetes Type 2 - suboptimally controlled while on steroids. -sliding scale insulin; medium coverage -continue all meds -blood glucose with meals and bedtime Maintenance issues -Nutrition: diabetic diet -Mane catheter not indicated at this time -DVT: enoxaparin 40mg subcut daily -GI Prophalaxis; pantoprazole 40 mg daily Disposition; home with , Jayashree Barcenas Georges Kc M.D.
[2016-10-28] MEDS ORDERED: Furosemide 20 MG/2 ML VIAL IVPUSH ONE (13:00)
[2016-10-28] MEDS: predniSONE 20 MG Tab PO SCH (16:45)
[2016-10-28] MEDS: atorvaSTATin 20 MG Tab PO SCH (20:58)
[2016-10-28] MEDS: Pramipexole 0.5 MG Tab PO SCH (20:58)
[2016-10-28] MEDS ORDERED: Insulin Aspart 100 Units/ML 3 ML Pen SUBCUT ONE (21:09)
--- NOTE | 2016-10-28 21:16 | PCM.SN ---
- Free Text/Narrative Note: time 2105: call 2 [place]; blood glucose 386 a; hyperglycemia p; order Novolog 15 unit subcut. now. continue present plan of care.
[2016-10-28] MEDS: Insulin Detemir 100 Units/ML 3 ML Pen SUBCUT SCH (21:31)
[2016-10-29] MEDS: Levofloxacin/Dextrose 5%-Water 500 MG in Premix Bag 1 BAG IV SCH (02:29)
[2016-10-29] MEDS: Albuterol/Ipratropium 3.0-0.5 MG/3 ML Neb Soln NEB SCH ×4 (07:22→21:24)
[2016-10-29] MEDS: predniSONE 20 MG Tab PO SCH ×2 (07:44→16:24)
[2016-10-29] MEDS: Pantoprazole 40 MG Tab.CR PO SCH (07:44)
[2016-10-29] MEDS: Insulin Aspart 100 Units/ML 3 ML Pen SUBCUT SCH ×4 (07:54→21:12)
[2016-10-29] MEDS: Carvedilol 25 MG Tab PO SCH (07:59)
[2016-10-29] MEDS ORDERED: Diazepam 5 MG Tab PO PRN (09:29)
[2016-10-29] MEDS: Enoxaparin 40 MG/0.4 ML Syringe SUBCUT SCH ×2 (09:46→10:23)
[2016-10-29] MEDS: Citalopram 20 MG Tab PO SCH ×2 (09:47→10:21)
[2016-10-29] MEDS: Diazepam 5 MG Tab PO SCH (10:06)
[2016-10-29] MEDS: Carvedilol 12.5 MG Tab PO SCH ×2 (10:22→16:27)
[2016-10-29] MEDS: oxyCODONE 5 MG Tab PO PRN ×3 (10:45→21:11)
--- NOTE | 2016-10-29 10:51 | PCM.PN ---
- General Info Date of Service: 10/29/16 Functional Status: Reports: pain controlled, ambulating - Review of Systems General: Denies: fever Pulmonary: Reports: shortness of breath Neurological: Reports: confusion Systems Review Comment:: No acute events overnight. This morning patient was noted to be somnolence and a little confused. Blood gases collected with morning rounds revealed a PCO2 of 68. Noninvasive ventilation was reinitiated at this time. He still seems a little confused but is otherwise stable. Other vital signs have been stable. No complaints of pain other than his chronic back pain. He has not been having any fevers. Lower extremity edema has improved with diuresis. - Patient Data Vitals - most recent: Last Vital Signs Temp 35.8 C 10/29/16 07:17 Pulse 58 L 10/29/16 10:22 Resp 16 10/29/16 07:17 BP 123/73 10/29/16 10:22 Pulse Ox 90 L 10/29/16 07:17 Weight - most recent: 150.956 kg I&O - last 24 hours: Intake & Output 10/28/16 10/29/16 10/29/16 22:59 06:59 14:59 Intake Total 480 100 Output Total 1300 1025 Balance -820 -925 Lab Results last 24 hrs: Laboratory Results - last 24 hr 10/29/16 Range/Units 05:00 Puncture Site Lt radial ABG pH 7.306 L (7.350-7.450) ABG pCO2 64.5 H (35.0-42.0) mmHg ABG pO2 61.0 L (75.0-100.0) mmHg ABG HCO3 31.2 H (22.0-26.0) mmol/L ABG Total CO2 28.4 H (23.0-27.0) mmol/L ABG O2 Saturation 88.0 L (95.0-98.0) % ABG O2 Content 16.3 (15.0-23.0) %vol ABG Base Excess 3.5 mm/L ABG Hemoglobin 13.5 (13.5-18.0) g/dL ABG Oxyhemoglobin 86.2 % ABG Carboxyhemoglobin 1.5 (0.0-1.6) % ABG Methemoglobin 0.5 % Chase Test Passed O2 Delivery Device Nasal cannula Oxygen Flow Rate 2 L Med Orders - Current: Current Medications Acetaminophen (Tylenol) 650 mg PO Q4H PRN PRN Reason: Pain (Mild 1-3)/fever Albuterol (Proventil Neb Soln) 2.5 mg NEB Q4H PRN PRN Reason: Shortness Of Breath;wheezing Albuterol/Ipratropium (Duoneb 3.0-0.5 Mg/3 Ml) 3 ml NEB QIDRT [facility] Last Admin: 10/29/16 07:22 Dose: 3 ml Albuterol/Ipratropium (Duoneb 3.0-0.5 Mg/3 Ml) 3 ml NEB ASDIRECTED PRN PRN Reason: SHORTNESS OF BREATH Atorvastatin Calcium (Lipitor) 40 mg PO BEDTIME [facility] Last Admin: 10/28/16 20:58 Dose: 40 mg Bisacodyl (Dulcolax) 5 mg PO DAILY PRN PRN Reason: Constipation Carvedilol (Coreg) 12.5 mg PO BIDMEALS [facility] Last Admin: 10/29/16 10:22 Dose: 12.5 mg Citalopram Hydrobromide (Celexa) 20 mg PO QAM [facility] Last Admin: 10/29/16 10:21 Dose: 20 mg Diazepam (Valium.) 10 mg PO TID PRN PRN Reason: Anxiety Docusate Sodium (Colace) 100 mg PO BID PRN PRN Reason: Constipation Enoxaparin Sodium (Lovenox) 40 mg SUBCUT DAILY [facility] Last Admin: 10/29/16 10:23 Dose: 40 mg Furosemide (Lasix) 20 mg PO QAM PRN PRN Reason: Other Glyburide (Micronase) 5 mg PO QPM [facility] Last Admin: 10/28/16 16:44 Dose: 5 mg Levofloxacin/Dextrose 500 mg/ (Premix) 100 mls @ 100 mls/hr IV Q24H [facility] Stop: 11/03/16 01:01 Last Admin: 10/29/16 02:29 Dose: 100 mls/hr Insulin Aspart (Novolog) 0 unit SUBCUT QIDACANDBED [facility] PRN Reason: Protocol Last Admin: 10/29/16 07:54 Dose: 4 unit Insulin Detemir (Levemir) 53 unit SUBCUT BEDTIME [facility] Last Admin: 10/28/16 21:31 Dose: 53 units Ipratropium [place] (Atrovent) 0.2 mg NEB Q4H PRN PRN Reason: Shortness of Breath/Wheezing Ondansetron HCl (Zofran Odt) 4 mg PO Q6H PRN PRN Reason: Nausea able to take PO Oxycodone HCl (Oxycodone) 10 mg PO Q4H PRN PRN Reason: Pain Last Admin: 10/29/16 10:45 Dose: 10 mg Pantoprazole Sodium (Protonix) 40 mg PO ACBREAKFAST [facility] Last Admin: 10/29/16 07:44 Dose: 40 mg Pramipexole Dihydrochloride (Mirapex) 1 mg PO BEDTIME [facility] Last Admin: 10/28/16 20:58 Dose: 1 mg Prednisone (Prednisone) 20 mg PO BIDAC [facility] Last Admin: 10/29/16 07:44 Dose: 20 mg Discontinued Medications Acetaminophen/Hydrocodone Bitart ([place] 325-5 Mg) 2 tab PO Q4H PRN PRN Reason: Pain (moderate 4-6) Albuterol (Proventil Neb Soln) 2.5 mg NEB ONETIME ONE Stop: 10/26/16 21:25 Last Admin: 10/26/16 21:38 Dose: 2.5 mg Carvedilol (Coreg) 25 mg PO BIDMEALS [facility] Last Admin: 10/29/16 07:59 Dose: Not Given Diazepam (Valium.) 10 mg PO TID [facility] Last Admin: 10/29/16 10:06 Dose: Not Given Furosemide (Lasix) 20 mg IVPUSH NOW ONE Stop: 10/28/16 13:01 Last Admin: 10/28/16 13:35 Dose: 20 mg Hydromorphone HCl (Dilaudid) 1 mg IVPUSH Q2H PRN PRN Reason: Pain Last Admin: 10/27/16 21:05 Dose: 1 mg Sodium Chloride (Normal Saline) 1,000 mls @ 100 mls/hr IV ASDIRECTED [facility] Last Admin: 10/28/16 11:36 Dose: 100 mls/hr Insulin Aspart (Novolog) 15 unit SUBCUT ONETIME ONE Stop: 10/28/16 21:10 Last Admin: 10/28/16 21:32 Dose: 15 units Lorazepam (Ativan) 1 mg IV Q6H PRN PRN Reason: Nausea/Vomiting Methylprednisolone Sodium Succinate (Solu-Medrol) 125 mg IV Q8H [facility] Last Admin: 10/27/16 01:24 Dose: 125 mg Methylprednisolone Sodium Succinate (Solu-Medrol) 125 mg IV Q8H [facility] Last Admin: 10/27/16 08:52 Dose: 125 mg Methylprednisolone Sodium Succinate (Solu-Medrol) 62.5 mg IV Q8H [facility] Last Admin: 10/28/16 08:32 Dose: 62.5 mg Pantoprazole Sodium (Protonix Iv) 40 mg IVPUSH DAILY@0730 [facility] Stop: 10/27/16 10:00 Last Admin: 10/27/16 10:07 Dose: 40 mg - Exam Quality Assessment: supplemental oxygen General: alert, cooperative, no acute distress Neck: supple Lungs: Clear to auscultation, Normal respiratory effort Cardiovascular: regular rate, regular rhythm, murmurs Abdomen: soft, no distension Extremities: no cyanosis, edema (pitting edema both lower legs to near knee) Skin: warm, dry Psy/Mental Status: alert, normal affect - Problem List & Annotations (1) Acute bronchitis SNOMED Code(s): 26532613 Code(s): J20.9 - ACUTE BRONCHITIS, UNSPECIFIED Status: Acute Current Visit: Yes Qualifiers: Bronchitis organism: unspecified organism Qualified Code(s): J20.9 - Acute bronchitis, unspecified (2) Acute respiratory failure with hypoxia and hypercapnia SNOMED Code(s): 44095526, 624856784 Code(s): J96.01 - ACUTE RESPIRATORY FAILURE WITH HYPOXIA; J96.02 - ACUTE RESPIRATORY FAILURE WITH HYPERCAPNIA Status: Acute Current Visit: Yes (3) Insulin dependent diabetes mellitus SNOMED Code(s): 83856497 Code(s): E11.9 - TYPE 2 DIABETES MELLITUS WITHOUT COMPLICATIONS; Z79.4 - [facility] (CURRENT) USE OF INSULIN Status: Chronic Current Visit: Yes (4) Morbid obesity with BMI of 45.0-49.9, adult SNOMED Code(s): 867820179 Code(s): E66.01 - MORBID (SEVERE) OBESITY DUE TO EXCESS CALORIES; Z68.42 - BODY MASS INDEX (BMI) 45.0-49.9, ADULT Status: Chronic Current Visit: No - Problem List Review Problem List Initiated/Reviewed/Updated: Yes - My Orders Last 24 Hours: My Active Orders 10/28/16 12:14 Convert IV to Saline Lock [OM.PC] Routine 10/28/16 16:30 predniSONE 20 mg PO BIDAC 10/29/16 09:29 Diazepam [Valium] 10 mg PO TID PRN 10/29/16 10:00 Carvedilol [Coreg] 12.5 mg PO BIDMEALS 10/29/16 15:00 Furosemide [Lasix] 20 mg IVPUSH ONETIME ONE 10/30/16 05:00 BASIC METABOLIC PANEL,BMP [CHEM] Timed BLOOD GAS ARTERIAL [BG] Timed CBC W/O DIFF,HEMOGRAM [HEME] Timed (1) - Plan Plan:: ASSESSMENT / PLAN Acute bronchitis with mild COPD exacerbation - possibly some contribution from volume. CO2 level has risen again today and he is sick enough that he is willing to wear the noninvasive ventilation mask. Tolerating antibiotics and diuresis. Clinically fairly stable at this point but still intermittently needing the noninvasive ventilation. -Continue levofloxacin -cont steroids -Supplement oxygen as needed -Nebulizers Heart failure with preserved ejection fraction - long-standing history with chronic lower extremity edema. No evidence for acute exacerbation. -continue medical management -continue diuretics Chronic respiratory failure - patient has history of COPD further complicated by obesity and possibly hypoventilation. He is on chronic supplemental oxygen therapy and has ABGs that document significant hypercapnia on several occasions. I believe that he would benefit from a home ventilation system to help with chronic respiratory failure and probable chronic hypoxia and hypercapnia. -Complete paperwork for home ventilation system through [facility] Diabetes Type 2 - suboptimally controlled while on steroids. -sliding scale insulin; high-dose coverage -continue all meds -blood glucose with meals and bedtime Maintenance issues -Nutrition: diabetic diet -Mane catheter not indicated at this time -DVT: enoxaparin 40mg subcut daily -GI Prophalaxis; pantoprazole 40 mg daily Disposition; home with , Jayashree Barcenas Georges Kc M.D.
[2016-10-29] MEDS ORDERED: Furosemide 20 MG/2 ML VIAL IVPUSH ONE (15:00)
[2016-10-29] MEDS: Insulin Detemir 100 Units/ML 3 ML Pen SUBCUT SCH (21:13)
[2016-10-29] MEDS: Pramipexole 0.5 MG Tab PO SCH (21:16)
[2016-10-29] MEDS: atorvaSTATin 20 MG Tab PO SCH (21:16)
[2016-10-30] MEDS: Levofloxacin/Dextrose 5%-Water 500 MG in Premix Bag 1 BAG IV SCH (01:08)
[2016-10-30] MEDS: oxyCODONE 5 MG Tab PO PRN ×3 (02:50→12:11)
[2016-10-30] MEDS: Insulin Aspart 100 Units/ML 3 ML Pen SUBCUT SCH ×2 (07:27→12:00)
[2016-10-30] MEDS: predniSONE 20 MG Tab PO SCH (07:28)
[2016-10-30] MEDS: Pantoprazole 40 MG Tab.CR PO SCH (07:28)
[2016-10-30] MEDS: Albuterol/Ipratropium 3.0-0.5 MG/3 ML Neb Soln NEB SCH ×2 (07:34→10:58)
[2016-10-30] MEDS: Citalopram 20 MG Tab PO SCH (08:49)
[2016-10-30] MEDS: Enoxaparin 40 MG/0.4 ML Syringe SUBCUT SCH (08:49)
[2016-10-30 10:49] VITALS: BP 160/84
[2016-10-30] MEDS: Carvedilol 12.5 MG Tab PO SCH (11:02)
--- NOTE | 2016-10-30 13:56 | PCM.DCSUM1 ---
Discharge Summary - Hospital Course Brief History: 60-year-old male with history of COPD, chronic back pain, heart failure with preserved ejection fraction and obesity who presented with confusion, shortness of breath and cough. He was admitted for management of acute bronchitis and acute exacerbation of COPD. - Discharge Data Discharge Date: 10/30/16 Discharge Disposition: Home, Self-Care 01 Condition: Fair - Discharge Diagnosis/Problem(s) (1) Acute bronchitis SNOMED Code(s): 11153148 ICD Code: J20.9 - ACUTE BRONCHITIS, UNSPECIFIED Status: Acute Qualifiers: Bronchitis organism: unspecified organism Qualified Code(s): J20.9 - Acute bronchitis, unspecified (2) Acute respiratory failure with hypoxia and hypercapnia SNOMED Code(s): 00647743, 743443668 ICD Code: J96.01 - ACUTE RESPIRATORY FAILURE WITH HYPOXIA; J96.02 - ACUTE RESPIRATORY FAILURE WITH HYPERCAPNIA Status: Acute (3) Insulin dependent diabetes mellitus SNOMED Code(s): 87244143 ICD Code: E11.9 - TYPE 2 DIABETES MELLITUS WITHOUT COMPLICATIONS; Z79.4 - RESIDENTIAL (CURRENT) USE OF INSULIN Status: Chronic (4) Morbid obesity with BMI of 45.0-49.9, adult SNOMED Code(s): 962842159 ICD Code: E66.01 - MORBID (SEVERE) OBESITY DUE TO EXCESS CALORIES; Z68.42 - BODY MASS INDEX (BMI) 45.0-49.9, ADULT Status: Chronic (5) Chronic respiratory failure with hypoxia and hypercapnia SNOMED Code(s): 99264728, 031264672 ICD Code: J96.11 - CHRONIC RESPIRATORY FAILURE WITH HYPOXIA; J96.12 - CHRONIC RESPIRATORY FAILURE WITH HYPERCAPNIA Status: Chronic - Patient Summary/Data Consults: Consultations 10/27/16 00:23 Respiratory Care Assess and Treatment [CONS] Routine Comment: start now Physician Instructions: bi-pap Reason for Consult: hypoxia Special Instructions: start Bi-Pap while sleeping. 10/27/16 09:29 Consult to Dietary [Consult to Special Programs Director] [CONS] Routine Comment: Physician Instructions: Quantity: Reason for Consult: diabetic diet recs Hospital Course: Philip presented to the emergency room with increasing cough, shortness of breath and confusion. Workup in the emergency room was suggestive of acute bronchitis with a COPD exacerbation. He was also found to have significant hypercapnia based on arterial blood gas testing. He was admitted to the hospital and started on levofloxacin for management of the respiratory infection. He was also started on noninvasive positive pressure ventilation overnight to help blow off some of the carbon dioxide. By the morning after admission he has shown some clinical improvement but he does remain a little bit confused from baseline. His PCO2 has improved on blood gas testing. He is still doing a fair amount of coughing and feels weak compared to baseline. Steroids and antibiotics were continued. He did not use the noninvasive ventilation during the next day or overnight and his PCO2 level milad back to nearly his admission level at 71. He was agreeable to using the noninvasive ventilation that morning and had a better day. He did use it overnight that following night and had improvement in his PCO2. Mental status has seemed to return to baseline. He has not had significant confusion when he does use the noninvasive ventilation. He used it intermittently throughout the night prior to discharge and has been improving but not quite back to baseline PCO2 level. I suspect that his baseline level is in the upper 40s based on acid base balance. He will need for additional days of antibiotic therapy with levofloxacin and 2 additional days of therapy with his prednisone for the COPD exacerbation. There was also probably at least a small component of volume overload leading to his respiratory compromise he has responded well to an increase in his diuretics. I believe he is safe for outpatient management at this time. We did set him up for a home nebulizer to help with his management of his COPD and acute exacerbation. Given his apparent chronic hypercapnia based on arterial blood gas testing coupled with his chronic respiratory failure requiring supplemental oxygen we did set him up for a home ventilation system through [facility]. I think this would provide significant benefit to his respiratory status and hopefully improve his quality of life and sleep as well. Also in [place] during the hospital stay was some difficulty with his chronic back pain. She was very interested in returning to his previous doses of narcotics including long-acting narcotics. He has not been prescribed these in quite some time after his pain contract was terminated. I had several discussions with him about why I didn't think this was a good idea. He has done quite well and his even reinforced this after his narcotics were discontinued. I discussed the concerns about his respiratory status while on narcotics. I was agreeable to give him a few days to help make his transition home because she's been dealing with increased back pain while in the hospital. He will be following up with his primary care provider later this week. - Patient Instructions Diet: Diabetic Diet Activity: As Tolerated Driving: Do Not Drive (if taking pain pills) Showering/Bathing: May Shower Notify Provider of: Fever, Increased Pain, Nausea and/or Vomiting Other/Special Instructions: 1. You were in the hospital for management of acute bronchitis as well as an exacerbation of your chronic obstructive pulmonary disease. I recommend additional antibiotic therapy and steroid therapy as mentioned below. You should continue to use your home oxygen as previously prescribed. We did also set you up for a home ventilation system to help reduce your carbon dioxide levels. [facility] will be providing your equipment this afternoon. -Takes levofloxacin 750 mg once daily at bedtime for 4 more days. This is an antibiotic used to treat the upper respiratory infection. - Take prednisone 20 mg twice daily with meals (breakfast and supper) for 5 more doses. Your first dose is due tonight with supper. This is an anti- inflammatory used to help reduce inflammation in your lungs caused by the infection. -use DuoNeb's 4 times daily until your respiratory status improves. This inhaled medicine can help improve your lung function and make your breathing easier. 2. Please utilize the home ventilation system nightly and with naps to help reduce your carbon dioxide levels in your blood. You will receive additional information about this equipment from [facility]. 3. Please seek medical attention if you develop fever greater than 101, sudden onset of shortness of breath and or if your confusion worsens. 4. Follow up with Dr Garcia at the end of the week to make sure that your breathing continues to improve. - Discharge Plan Prescriptions/Med Rec: Albuterol/Ipratropium [DuoNeb 3.0-0.5 MG/3 ML] 3 ml NEB QIDRT #120 neb Levofloxacin 750 mg PO BEDTIME #4 tablet Prednisone [IJD: predniSONE] 20 mg PO BIDAC #5 tablet oxyCODONE 10 mg PO Q4H PRN #20 tablet PRN Reason: Pain (Severe 7-10) Home Medications: Home Meds Citalopram Hydrobromide [Citalopram HBr] 20 mg PO QAM 06/23/14 [History] Diazepam 10 mg PO TID 06/23/14 [History] Furosemide 20 mg PO QAM PRN 06/23/14 [History] Pramipexole [Mirapex] 1 mg PO BEDTIME 06/23/14 [History] atorvaSTATin [Lipitor] 40 mg PO BEDTIME 06/23/14 [History] Insulin Glarg,Human.Rec.Analog [Lantus Solostar] 53 unit SQ BEDTIME 06/16/15 [ History] Clopidogrel [Plavix] 75 mg PO QAM 12/01/15 [History] glyBURIDE [Glyburide] 5 mg PO QPM 12/01/15 [History] Carvedilol [Coreg] 25 mg PO BIDMEALS 01/31/16 [History] Albuterol/Ipratropium [DuoNeb 3.0-0.5 MG/3 ML] 3 ml NEB QIDRT #120 neb 10/30/16 [Rx] Levofloxacin 750 mg PO BEDTIME #4 tablet 10/30/16 [Rx] Prednisone [IJD: predniSONE] 20 mg PO BIDAC #5 tablet 10/30/16 [Rx] oxyCODONE 10 mg PO Q4H PRN #20 tablet 10/30/16 [Rx] Patient Handouts: Chronic Obstructive Pulmonary Disease Exacerbation, Chronic Respiratory Failure Referrals: Volodymyr Garcia MD [Primary Care Provider] - (1 week - f/u or monday - f/u hospital stay for bronchitis with copd exacerbation ) - Discharge Summary/Plan Comment DC Time >30 min.: Yes (45 - coordinating outpatient equipment and counseling ) - Patient Data Vitals - Most Recent: Last Vital Signs Temp 36.7 C 10/30/16 11:22 Pulse 106 H 10/30/16 11:12 Resp 18 10/30/16 10:48 BP 160/84 H 10/30/16 11:02 Pulse Ox 89 L 10/30/16 10:48 Weight - Most Recent: 150.956 kg I&O - Last 24 hours: Intake & Output 10/29/16 10/30/16 10/30/16 22:59 06:59 14:59 Intake Total 500 100 960 Output Total 1600 600 400 Balance -1100 -500 560 Lab Results - Last 24 hrs: Laboratory Results - last 24 hr 10/30/16 10/30/16 10/30/16 Range/Units 05:00 06:03 06:03 WBC 8.3 (4.5-11.0) K/uL RBC 4.23 L (4.30-5.90) M/uL Hgb 13.1 (12.0-15.0) g/dL Hct 42.6 (40.0-54.0) % MCV 101 H (80-98) fL MCH 31 (27-31) pg MCHC 31 L (32-36) % Plt Count 151 (150-400) K/uL Puncture Site Lt radial ABG pH 7.368 (7.350-7.450) ABG pCO2 55.3 H (35.0-42.0) mmHg ABG pO2 55.0 L (75.0-100.0) mmHg ABG HCO3 31.0 H (22.0-26.0) mmol/L ABG Total CO2 27.9 H (23.0-27.0) mmol/L ABG O2 Saturation 86.6 L (95.0-98.0) % ABG O2 Content 15.7 (15.0-23.0) %vol ABG Base Excess 4.8 mm/L ABG Hemoglobin 13.3 L (13.5-18.0) g/dL ABG Oxyhemoglobin 84.1 % ABG Carboxyhemoglobin 2.5 H (0.0-1.6) % ABG Methemoglobin 0.4 % Chase Test Passed O2 Delivery Device Nasal cannula Oxygen Flow Rate L Sodium 140 (140-148) mmol/L Potassium 3.9 (3.6-5.2) mmol/L Chloride 103 (100-108) mmol/L Carbon Dioxide 33 H (21-32) mmol/L Anion Gap 7.9 (5.0-14.0) mmol/L BUN 22 H (7-18) mg/dL Creatinine 0.9 (0.8-1.3) mg/dL Est Cr Clr Drug Dosing 90.12 mL/min Estimated GFR (MDRD) > 60 (>60) Glucose 125 H (74-106) mg/dL Calcium 7.7 L (8.5-10.1) mg/dL Med Orders - Current: Current Medications Acetaminophen (Tylenol) 650 mg PO Q4H PRN PRN Reason: Pain (Mild 1-3)/fever Albuterol (Proventil Neb Soln) 2.5 mg NEB Q4H PRN PRN Reason: Shortness Of Breath;wheezing Albuterol/Ipratropium (Duoneb 3.0-0.5 Mg/3 Ml) 3 ml NEB QIDRT [facility] Last Admin: 10/30/16 10:58 Dose: 3 ml Albuterol/Ipratropium (Duoneb 3.0-0.5 Mg/3 Ml) 3 ml NEB ASDIRECTED PRN PRN Reason: SHORTNESS OF BREATH Atorvastatin Calcium (Lipitor) 40 mg PO BEDTIME [facility] Last Admin: 10/29/16 21:16 Dose: 40 mg Bisacodyl (Dulcolax) 5 mg PO DAILY PRN PRN Reason: Constipation Carvedilol (Coreg) 12.5 mg PO BIDMEALS [facility] Last Admin: 10/30/16 11:02 Dose: 12.5 mg Citalopram Hydrobromide (Celexa) 20 mg PO QAM [facility] Last Admin: 10/30/16 08:49 Dose: 20 mg Diazepam (Valium.) 10 mg PO TID PRN PRN Reason: Anxiety Docusate Sodium (Colace) 100 mg PO BID PRN PRN Reason: Constipation Enoxaparin Sodium (Lovenox) 40 mg SUBCUT DAILY [facility] Last Admin: 10/30/16 08:49 Dose: 40 mg Furosemide (Lasix) 20 mg PO QAM PRN PRN Reason: Other Glyburide (Micronase) 5 mg PO QPM [facility] Last Admin: 10/29/16 16:24 Dose: 5 mg Levofloxacin/Dextrose 500 mg/ (Premix) 100 mls @ 100 mls/hr IV Q24H [facility] Stop: 11/03/16 01:01 Last Admin: 10/30/16 01:08 Dose: 100 mls/hr Insulin Aspart (Novolog) 0 unit SUBCUT QIDACANDBED [facility] PRN Reason: Protocol Last Admin: 10/30/16 12:00 Dose: 3 units Insulin Detemir (Levemir) 53 unit SUBCUT BEDTIME [facility] Last Admin: 10/29/16 21:13 Dose: 53 units Ipratropium Archie (Atrovent) 0.2 mg NEB Q4H PRN PRN Reason: Shortness of Breath/Wheezing Ondansetron HCl (Zofran Odt) 4 mg PO Q6H PRN PRN Reason: Nausea able to take PO Oxycodone HCl (Oxycodone) 10 mg PO Q4H PRN PRN Reason: Pain Last Admin: 10/30/16 12:11 Dose: 10 mg Pantoprazole Sodium (Protonix) 40 mg PO ACBREAKFAST [facility] Last Admin: 10/30/16 07:28 Dose: 40 mg Pramipexole Dihydrochloride (Mirapex) 1 mg PO BEDTIME [facility] Last Admin: 10/29/16 21:16 Dose: 1 mg Prednisone (Prednisone) 20 mg PO BIDAC [facility] Last Admin: 10/30/16 07:28 Dose: 20 mg Discontinued Medications Acetaminophen/Hydrocodone Bitart ([place] 325-5 Mg) 2 tab PO Q4H PRN PRN Reason: Pain (moderate 4-6) Albuterol (Proventil Neb Soln) 2.5 mg NEB ONETIME ONE Stop: 10/26/16 21:25 Last Admin: 10/26/16 21:38 Dose: 2.5 mg Carvedilol (Coreg) 25 mg PO BIDMEALS [facility] Last Admin: 10/29/16 07:59 Dose: Not Given Diazepam (Valium.) 10 mg PO TID [facility] Last Admin: 10/29/16 10:06 Dose: Not Given Furosemide (Lasix) 20 mg IVPUSH NOW ONE Stop: 10/28/16 13:01 Last Admin: 10/28/16 13:35 Dose: 20 mg Furosemide (Lasix) 20 mg IVPUSH ONETIME ONE Stop: 10/29/16 15:01 Last Admin: 10/29/16 14:34 Dose: 20 mg Hydromorphone HCl (Dilaudid) 1 mg IVPUSH Q2H PRN PRN Reason: Pain Last Admin: 10/27/16 21:05 Dose: 1 mg Sodium Chloride (Normal Saline) 1,000 mls @ 100 mls/hr IV ASDIRECTED [facility] Last Admin: 10/28/16 11:36 Dose: 100 mls/hr Insulin Aspart (Novolog) 0 unit SUBCUT QIDACANDBED [facility] PRN Reason: Protocol Last Admin: 10/29/16 16:55 Dose: 8 unit Insulin Aspart (Novolog) 15 unit SUBCUT ONETIME ONE Stop: 10/28/16 21:10 Last Admin: 10/28/16 21:32 Dose: 15 units Lorazepam (Ativan) 1 mg IV Q6H PRN PRN Reason: Nausea/Vomiting Methylprednisolone Sodium Succinate (Solu-Medrol) 125 mg IV Q8H [facility] Last Admin: 10/27/16 01:24 Dose: 125 mg Methylprednisolone Sodium Succinate (Solu-Medrol) 125 mg IV Q8H [facility] Last Admin: 10/27/16 08:52 Dose: 125 mg Methylprednisolone Sodium Succinate (Solu-Medrol) 62.5 mg IV Q8H [facility] Last Admin: 10/28/16 08:32 Dose: 62.5 mg Pantoprazole Sodium (Protonix Iv) 40 mg IVPUSH DAILY@729 [facility] Stop: 10/27/16 10:00 Last Admin: 10/27/16 10:07 Dose: 40 mg *Q Meaningful Use (DIS) - VTE *Q VTE Criteria *Q: - Stroke *Q Stroke Criteria *Q: - AMI *Q AMI Criteria *Q:
== END 2016-10-30 14:20 | disposition home or self-care (01) | DRG 190 ==
LOC: JP.ED 20:40 → JP.MS 23:47
PROVIDERS: ADMIT Internal Medicine; ATTEND Internal Medicine
DX: J44.0 Chronic obstructive pulmonary disease with (acute) lower respiratory infection (principal); J96.21 Acute and chronic respiratory failure with hypoxia; J96.22 Acute and chronic respiratory failure with hypercapnia; Z68.42 Body mass index [BMI] 45.0-49.9, adult; J20.9 Acute bronchitis, unspecified; J44.1 Chronic obstructive pulmonary disease with (acute) exacerbation; I50.9 Heart failure, unspecified; E11.9 Type 2 diabetes mellitus without complications; I11.0 Hypertensive heart disease with heart failure; Z97.4 Presence of external hearing-aid; I71.2 Thoracic aortic aneurysm, without rupture; Z99.81 Dependence on supplemental oxygen; M19.90 Unspecified osteoarthritis, unspecified site; F32.9 Major depressive disorder, single episode, unspecified; F41.9 Anxiety disorder, unspecified; M54.9 Dorsalgia, unspecified; G89.29 Other chronic pain; H54.7 Unspecified visual loss; E66.01 Morbid (severe) obesity due to excess calories; Z79.52 Long term (current) use of systemic steroids; Z88.0 Allergy status to penicillin; Z88.8 Allergy status to other drugs, medicaments and biological substances; Z79.4 Long term (current) use of insulin
CPT/HCPCS: 36415; 36600; 71020; 71020-26; 80048; 80053; 82803; 82962; 83880; 84484; 85025; 85027; 93005; 93010; 94640-76; 94660; 94667; 94668; 99285-25; A9270-GY; C9113; J1170; J1650; J1940; J1956; J2930; J7040; J7620

== ENCOUNTER 2018-01-12 15:13 | Emergency (ER) | payer MEDICARE, BC ==
[2018-01-12 15:42] VITALS: BP 161/91
[2018-01-12] MEDS ORDERED: Ondansetron 4 MG/2 ML SDV IVPUSH ONE (16:46)
[2018-01-12] MEDS ORDERED: HYDROmorphone 0.5 MG/0.5 ML Syringe IVPUSH ONE (16:46)
--- NOTE | 2018-01-12 16:50 | EDM.PDOC ---
ED HPI GENERAL MEDICAL PROBLEM - General Chief Complaint: Abdominal Pain Stated Complaint: PAIN ON RIGHT SIDE Time Seen by Provider: 01/12/18 16:01 Source of Information: Reports: Patient History Limitations: Reports: No Limitations - History of Present Illness INITIAL COMMENTS - FREE TEXT/NARRATIVE: Philip presents today with complaints of RLQ abdominal pain for 2 to 3 days. He also reports he has been getting ready for fishing, putting his dock in, working on his boat. He denies injury or trauma. He denies fever, chills, nausea, vomiting or change in bowel and bladder habits. Right Lower Abdomen Pain Score (Numeric/FACES): 8 - Related Data Allergies Allergy/AdvReac Type Severity Reaction Status Date / Time Penicillins Allergy Cannot Verified 01/12/18 15:46 Remember Home Meds: Home Meds atorvaSTATin [Lipitor] 40 mg PO BEDTIME 06/23/14 [History] Albuterol Sulfate [Proair Hfa] 1 - 2 puff IH Q4H PRN 11/06/17 [History] Ipratropium [Atrovent HFA Inh] 2 puff INH QID 11/06/17 [History] Carvedilol 6.25 mg PO DAILY 01/12/18 [History] Diltiazem HCl [Cartia Xt] 240 mg PO DAILY 01/12/18 [History] Gabapentin [Neurontin] 600 mg PO TID 01/12/18 [History] Lisinopril 10 mg PO DAILY 01/12/18 [History] Tamsulosin HCl 0.4 mg PO DAILY 01/12/18 [History] metFORMIN HCl [Metformin HCl] 1,000 mg PO BID 01/12/18 [History] Past Medical History HEENT History: Reports: Cataract, Impaired Vision Cardiovascular History: Reports: Arrhythmia, High Cholesterol, Hypertension Other Cardiovascular History: angiogram-- 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 years Respiratory History: Reports: Bronchitis, Recurrent, COPD Gastrointestinal History: Reports: GI Bleed Other Gastrointestinal History: throwing up coffee grounds Genitourinary History: Reports: Other (See Below) Other Genitourinary History: kidney removed- enlarged Musculoskeletal History: Reports: Back Pain, Chronic, Osteoarthritis Other Musculoskeletal History: herniated disc Neurological History: Reports: Concussion, Vertigo Psychiatric History: Reports: Anxiety, Depression Endocrine/Metabolic History: Reports: Diabetes, Type II, Obesity/BMI 30+ - Infectious Disease History Infectious Disease History: Reports: Chicken Pox - Past Surgical History HEENT Surgical History: Reports: Tonsillectomy, Other (See Below) GI Surgical History: Reports: Hernia Repair/Other Male Surgical History: Reports: Nephrectomy, Other (See Below) Other Male Surgeries/Procedures: right removed Endocrine Surgical History: Reports: Thyroid Biopsy Musculoskeletal Surgical History: Reports: Shoulder Surgery Social & Family History - Tobacco Use Smoking Status *Q: Never Smoker - Caffeine Use Caffeine Use: Reports: Coffee - Recreational Drug Use Recreational Drug Use: No ED ROS GENERAL - Review of Systems Review Of Systems: See Below Constitutional: Denies: Fever, Chills, Malaise, Weakness HEENT: Reports: No Symptoms Respiratory: Denies: Shortness of Breath, Wheezing, Cough, Sputum Cardiovascular: Denies: Chest Pain, Dyspnea on Exertion, Edema, Lightheadedness , Palpitations, PND, Syncope GI/Abdominal: Reports: Abdominal Pain, Other (He reports pain to RLQ when he moves his left leg, turns or bends. ). Denies: Black Stool, Bloody Stool, Constipation, Diarrhea, Decreased Appetite, Difficulty Swallowing, Distension, Hematemesis, Nausea, Stool Incontinence, Vomiting : Denies: Dysuria, Flank Pain, Frequency, Hematuria, Urgency, Urinary Retention Musculoskeletal: Reports: Other (He complains of chronic low back pain and left knee pain. He denies bilateral hip pain. ) Skin: Denies: Pallor, Bruising, Rash, Erythema, Wound Neurological: Denies: Confusion, Dizziness, Headache, Numbness, Tingling, Difficulty Walking, Weakness Psychiatric: Reports: No Symptoms Hematologic/Lymphatic: Reports: No Symptoms Immunologic: Reports: No Symptoms ED EXAM, GI/ABD - Physical Exam Exam: See Below Text/Narrative:: Philip is an alert and oriented 62 year old male with multiple comorbidities and significant medical history presenting with RLQ abdominal pain. Exam Limited By: No Limitations General Appearance: Alert, WD/WN, Mild Distress Eyes: Bilateral: Normal Appearance, EOMI Ears: Normal External Exam, Normal Canal, Hearing Grossly Normal, Normal TMs Nose: Normal Inspection, Normal Mucosa, No Blood Throat/Mouth: Normal Inspection, Normal Lips, Normal Teeth, Normal Gums, Normal Oropharynx, Normal Voice, No Airway Compromise Head: Atraumatic, Normocephalic Neck: Normal Inspection, Supple, Non-Tender, Full Range of Motion. No: Lymphadenopathy (R), Lymphadenopathy (L) Respiratory/Chest: No Respiratory Distress, Lungs Clear, Normal Breath Sounds, No Accessory Muscle Use, Chest Non-Tender Cardiovascular: Normal Peripheral Pulses, Regular Rate, Rhythm, No Edema, No Murmur, No Rub GI/Abdominal Exam: Normal Bowel Sounds, Soft, No Organomegaly, Rebound, Tender, Other (Tenderness and rebound to RLQ. ). No: Guarding, Rigid Back Exam: Normal Inspection, Decreased Range of Motion, Other (Chronic back pain with decreased ROM, patient reports as normal. ). No: CVA Tenderness (R), CVA Tenderness (L), Muscle Spasm Extremities: Normal Inspection, Normal Range of Motion, Non-Tender, No Pedal Edema, Normal Capillary Refill Neurological: Alert, Oriented, CN II-XII Intact, Normal Cognition, Normal Gait, No Motor/Sensory Deficits Psychiatric: Normal Affect, Normal Mood Skin Exam: Warm, Dry, Intact, Normal Color, No Rash Lymphatic: No Adenopathy Course - Vital Signs Last Recorded V/S: Last Vital Signs Temp 36.3 C 01/12/18 15:44 Pulse 71 01/12/18 15:44 Resp 17 01/12/18 15:44 BP 161/91 H 01/12/18 15:44 Pulse Ox 90 L 01/12/18 15:44 - Orders/Labs/Meds Orders: Active Orders 24 hr Category Date Time Status Abdomen Pelvis w Cont [CT] Stat Exams 01/12/18 16:20 Taken UA W/MICROSCOPIC [URIN] Stat Lab 01/12/18 16:06 Ordered Saline Lock Insert [OM.PC] Routine Oth 01/12/18 16:46 Ordered Labs: Laboratory Tests 01/12/18 01/12/18 01/12/18 Range/Units 16:06 16:15 16:20 WBC 9.4 (4.5-11.0) K/uL RBC 4.83 (4.30-5.90) M/uL Hgb 14.9 (12.0-15.0) g/dL Hct 43.8 (40.0-54.0) % MCV 91 (80-98) fL MCH 31 (27-31) pg MCHC 34 (32-36) % Plt Count 203 (150-400) K/uL Sodium 137 L (140-148) mmol/L Potassium 4.3 (3.6-5.2) mmol/L Chloride 100 (100-108) mmol/L Carbon Dioxide 30 (21-32) mmol/L Anion Gap 11.3 (5.0-14.0) mmol/L BUN 15 (7-18) mg/dL Creatinine 1.1 (0.8-1.3) mg/dL Est Cr Clr Drug Dosing 74.16 mL/min Estimated GFR (MDRD) > 60 (>60) Glucose 172 H (74-106) mg/dL Calcium 8.8 (8.5-10.1) mg/dL Total Bilirubin 0.6 (0.2-1.0) mg/dL AST 17 (15-37) U/L ALT 32 (12-78) U/L Alkaline Phosphatase 82 (46-116) U/L Total Protein 7.4 (6.4-8.2) g/dL Albumin 3.8 (3.4-5.0) g/dL Globulin 3.6 H (2.3-3.5) g/dL Albumin/Globulin Ratio 1.1 L (1.2-2.2) Urine Color Yellow Urine Appearance Clear Urine pH 6.0 (4.5-8.0) Ur Specific [place] 1.010 (1.008-1.030) Urine Protein Trace (NEGATIVE) mg/dL Urine Glucose (UA) 50 H (NEGATIVE) mg/dL Urine Ketones Negative (NEGATIVE) mg/dL Urine Occult Blood Negative (NEGATIVE) Urine Nitrite Negative (NEGAITVE) Urine Bilirubin Negative (NEGATIVE) Urine Urobilinogen Normal (NORMAL) mg/dL Ur Leukocyte Esterase Negative (NEGATIVE) Urine RBC Not seen (0-5) Urine WBC Not seen (0-5) Ur Epithelial Cells Not seen Amorphous Sediment Rare Urine Bacteria Not seen Urine Mucus Not seen Meds: Medications Discontinued Medications Generic Name Dose Route Start Last Admin Trade Name Freq PRN Reason Stop Dose Admin Hydromorphone HCl 0.5 mg 01/12/18 16:46 01/12/18 17:19 Dilaudid IVPUSH 01/12/18 16:47 0.5 mg ONETIME ONE Administration Sodium Chloride 1,000 mls @ 150 mls/hr 01/12/18 17:00 Normal Saline IV ASDIRECTED ELI Sodium Chloride 80 mls @ 3 mls/sec 01/12/18 17:00 01/12/18 17:28 Normal Saline IV 3 mls/sec ASDIRECTED ELI Administration Iopamidol 150 ml 01/12/18 17:00 01/12/18 17:29 Isovue-300 (61%) IV 150 ml . DIRECTED ELI Administration Ondansetron HCl 4 mg 01/12/18 16:46 01/12/18 17:19 Zofran IVPUSH 01/12/18 16:47 4 mg ONETIME ONE Administration Sodium Chloride 10 ml 01/12/18 16:46 01/12/18 17:28 Saline Flush FLUSH 10 ml ASDIRECTED PRN Administration Keep Vein Open 18:00 Patient reports pain has improved to 2/10. - Radiology Interpretation CT Results Date: 01/12/18 (No acute abnormality identified. No cause for the patient's symptoms is demonstrated. ) Departure - Departure Time of Disposition: 19:02 Disposition: Home, Self-Care 01 Condition: Fair Clinical Impression: Abdominal pain, Muscle strain - Discharge Information Instructions: Muscle Strain, [id number], Abdominal Pain, Adult, [id number] Referrals: PCP,None [Primary Care Provider] - Forms: ED Department Discharge Additional Instructions: You have been evaluated and treated in the emergency room for abdominal pain/ muscle strain. Rest, avoid heavy lifting, pushing or pulling. Take acetaminophen and your gabapentin for pain. Keep yourself hydrated with plenty of water. You may use baclofen 20mg by mouth three times a day for muscle relaxer. You can also use lidocaine 5% patch to area of pain, place on for 12 hours, take off for 12 hours. Follow up with your primary provider in 7 to 10 days for recheck of status. Return to the emergency room for worsening, fever, pain, change in bowel/ bladder habits or other concerns. - My Orders Last 24 Hours: My Active Orders 01/12/18 16:06 UA W/MICROSCOPIC [URIN] Stat 01/12/18 16:20 Abdomen Pelvis w Cont [CT] Stat 01/12/18 16:46 Saline Lock Insert [OM.PC] Routine - Assessment/Plan Last 24 Hours: My Active Orders 01/12/18 16:06 UA W/MICROSCOPIC [URIN] Stat 01/12/18 16:20 Abdomen Pelvis w Cont [CT] Stat 01/12/18 16:46 Saline Lock Insert [OM.PC] Routine Assessment:: Abdominal pain, muscle strain Plan: Patient evaluated and treated in the emergency room for abdominal pain/muscle strain. Rest, avoid heavy lifting, pushing or pulling. Take acetaminophen and his gabapentin as prescribed for pain. Keep yourself with plenty of water. He may use baclofen 20mg by mouth three times a day for muscle relaxer. He can also use lidocaine 5% patch to area of pain, place on for 12 hours, take off for 12 hours. Follow up with primary provider in 7 to 10 days for recheck of status. Return to the emergency room for worsening, fever, pain, change in bowel/ bladder habits or other concerns.
[2018-01-12] MEDS ORDERED: Sodium Chloride 0.9% 1,000 ML IV SCH (17:00)
[2018-01-12] MEDS ORDERED: Sodium Chloride 0.9% 80 ML IV SCH (17:00)
[2018-01-12] MEDS ORDERED: Iopamidol 612 MG/ML 150 ML Bottle IV SCH (17:00)
[2018-01-12] MEDS: Sodium Chloride 0.9% 10 ML Syringe FLUSH PRN ×2 (17:19→17:28)
== END 2018-01-12 19:22 | disposition home or self-care (01) ==
LOC: JP.ED 15:13
DX: T14.8XXA Other injury of unspecified body region, initial encounter (principal); R10.31 Right lower quadrant pain; E11.9 Type 2 diabetes mellitus without complications; Z88.0 Allergy status to penicillin; Z79.899 Other long term (current) drug therapy; Z79.84 Long term (current) use of oral hypoglycemic drugs; X58.XXXA Exposure to other specified factors, initial encounter
CPT/HCPCS: 36415; 74177; 80053; 81001; 85027; 96374; 96375; 99284; J1170; J2405; J7030; J7050

== ENCOUNTER 2021-10-13 06:40 | Emergency (ER) | payer MEDICARE, BC ==
[2021-10-13 06:59] VITALS: BP 136/70; PULSE 75
== END 2021-10-13 08:16 | disposition home or self-care (01) ==
LOC: JP.ED 06:40
DX: S86.011A Strain of right Achilles tendon, initial encounter (principal); S86.811A Strain of other muscle(s) and tendon(s) at lower leg level, right leg, initial encounter; E78.00 Pure hypercholesterolemia, unspecified; I10 Essential (primary) hypertension; J44.9 Chronic obstructive pulmonary disease, unspecified; E11.9 Type 2 diabetes mellitus without complications; E66.9 Obesity, unspecified; M19.90 Unspecified osteoarthritis, unspecified site; Z68.41 Body mass index [BMI] 40.0-44.9, adult; Z88.0 Allergy status to penicillin; Z79.82 Long term (current) use of aspirin; Z79.899 Other long term (current) drug therapy; X50.0XXA Overexertion from strenuous movement or load, initial encounter
CPT/HCPCS: 93971-26; 93971-RT; 99283-25

== ENCOUNTER 2022-09-28 05:32 | Inpatient (IN) | payer MEDICARE, BC ==
[2022-09-28] MEDS ORDERED: Lactated Ringers 1,000 ML IV SCH (06:00)
[2022-09-28 06:22] LABS: ESTIMATED GFR 67 mL/min (>60)
[2022-09-28 06:31] LABS: CORONAVIRUS COVID-19 NAA NEGATIVE (NEGATIVE)
[2022-09-28] MEDS ORDERED: Cefepime 2 GM in Sodium Chloride 0.9% 50 ML IV SCH (07:00)
[2022-09-28] MEDS ORDERED: LORazepam 2 MG/ML SDV IVPUSH ONE (08:07)
[2022-09-28] MEDS ORDERED: Vancomycin 2 GM in Sodium Chloride 0.9% 500 ML IV SCH (08:24)
[2022-09-28] MEDS ORDERED: Levofloxacin/Dextrose 5%-Water 750 MG in Premix Bag 1 BAG IV SCH (08:30)
[2022-09-28] MEDS ORDERED: Glucose Gel 15 GM in 37.5 GM Tube PO PRN (08:56)
[2022-09-28] MEDS ORDERED: 50% Dextrose in Water 50 ML Syringe IV PRN (08:56)
[2022-09-28] MEDS ORDERED: Albuterol 0.083% 2.5 MG/3 ML Neb Soln NEB PRN (08:56)
[2022-09-28] MEDS ORDERED: Ondansetron 4 MG/2 ML SDV IV PRN (08:56)
[2022-09-28] MEDS ORDERED: Sodium Chloride 0.9% 10 ML Syringe FLUSH PRN (08:56)
[2022-09-28] MEDS ORDERED: Vancomycin 1 GM SDV IV SCH (09:00)
[2022-09-28] MEDS ORDERED: Non-Formulary Medication 1 Each (Buprenorphine Hcl/Naloxone Hcl [Buprenorphine-Nalox 12-3m SL SCH (09:00)
[2022-09-28] MEDS: Sodium Chloride 0.9% 1,000 ML IV SCH (09:47)
[2022-09-28] MEDS ORDERED: IPRATROPIUM INH SCH (10:00)
[2022-09-28] MEDS: Enoxaparin 40 MG/0.4 ML Syringe SUBCUT SCH (10:12)
[2022-09-28] MEDS: methylPREDNISolone Sodium Succinate 40 MG/1 ML SDV IVPUSH SCH ×2 (10:12→17:54)
[2022-09-28] MEDS: Albuterol/Ipratropium 3.0-0.5 MG/3 ML Neb Soln NEB SCH ×3 (10:40→21:31)
[2022-09-28] MEDS: Insulin Lispro 100 Unit/ML 3 ML KwikPen SUBCUT SCH ×3 (11:03→22:26)
[2022-09-28] MEDS ORDERED: Flumazenil 0.1 MG/ML 5 ML MDV IVPUSH ONE (12:15)
[2022-09-28] MEDS: Cefepime 2 GM in Sodium Chloride 0.9% 50 ML IV SCH ×2 (14:42→22:01)
[2022-09-28] MEDS: Losartan 50 MG Tab PO SCH (14:47)
[2022-09-28] MEDS: Tamsulosin 0.4 MG Cap.ER PO SCH (14:47)
[2022-09-28] MEDS: Gabapentin 400 MG Cap PO SCH ×3 (14:47→21:26)
[2022-09-28] MEDS: Diltiazem 120 MG Cap.CD PO SCH (14:48)
[2022-09-28] MEDS: Hydrochlorothiazide 25 MG Tab PO SCH (14:48)
[2022-09-28] MEDS: Carvedilol 12.5 MG Tab PO SCH ×2 (14:48→21:27)
[2022-09-28] MEDS: atorvaSTATin 20 MG Tab PO SCH (14:49)
[2022-09-28] MEDS: Aspirin 81 MG Tab.EC PO SCH (14:49)
[2022-09-28] MEDS: Buprenorphine/Naloxone 1 TAB, Buprenorphine/Naloxone 2 TAB SL SCH ×2 (14:49)
[2022-09-28] MEDS: Flumazenil 0.1 MG/ML 5 ML MDV IVPUSH PRN ×2 (16:35→19:28)
[2022-09-28] MEDS: Doxepin 25 MG Cap PO SCH (21:29)
[2022-09-29] MEDS: Acetaminophen 325 MG Tab PO PRN ×2 (01:13→16:32)
[2022-09-29] MEDS: methylPREDNISolone Sodium Succinate 40 MG/1 ML SDV IVPUSH SCH ×3 (01:16→17:21)
[2022-09-29] MEDS: Cefepime 2 GM in Sodium Chloride 0.9% 50 ML IV SCH ×3 (06:04→21:44)
[2022-09-29] MEDS: Sodium Chloride 0.9% 1,000 ML IV SCH (06:06)
[2022-09-29] MEDS: Albuterol/Ipratropium 3.0-0.5 MG/3 ML Neb Soln NEB SCH ×3 (07:07→21:23)
[2022-09-29] MEDS: Insulin Lispro 100 Unit/ML 3 ML KwikPen SUBCUT SCH ×4 (07:59→20:16)
[2022-09-29] MEDS: Gabapentin 400 MG Cap PO SCH ×3 (09:56→21:22)
[2022-09-29] MEDS: Diltiazem 120 MG Cap.CD PO SCH (09:56)
[2022-09-29] MEDS: Losartan 50 MG Tab PO SCH (09:57)
[2022-09-29] MEDS: Tamsulosin 0.4 MG Cap.ER PO SCH (09:58)
[2022-09-29] MEDS: Carvedilol 12.5 MG Tab PO SCH ×2 (09:58→21:22)
[2022-09-29] MEDS: Enoxaparin 40 MG/0.4 ML Syringe SUBCUT SCH (09:59)
[2022-09-29] MEDS: Hydrochlorothiazide 25 MG Tab PO SCH (09:59)
[2022-09-29] MEDS: atorvaSTATin 20 MG Tab PO SCH (09:59)
[2022-09-29] MEDS: Aspirin 81 MG Tab.EC PO SCH (09:59)
[2022-09-29] MEDS: Buprenorphine/Naloxone 1 TAB, Buprenorphine/Naloxone 2 TAB SL SCH ×2 (10:15)
[2022-09-29] MEDS: Levofloxacin/Dextrose 5%-Water 750 MG in Premix Bag 1 BAG IV SCH (12:35)
[2022-09-29] MEDS: Doxepin 25 MG Cap PO SCH (21:22)
[2022-09-30] MEDS: methylPREDNISolone Sodium Succinate 40 MG/1 ML SDV IVPUSH SCH (01:57)
[2022-09-30] MEDS: Cefepime 2 GM in Sodium Chloride 0.9% 50 ML IV SCH (05:43)
[2022-09-30] MEDS: Acetaminophen 325 MG Tab PO PRN (06:14)
[2022-09-30] MEDS: Albuterol/Ipratropium 3.0-0.5 MG/3 ML Neb Soln NEB SCH ×4 (07:04→20:29)
[2022-09-30] MEDS: Gabapentin 400 MG Cap PO SCH ×3 (07:16→20:25)
[2022-09-30] MEDS: Insulin Lispro 100 Unit/ML 3 ML KwikPen SUBCUT SCH ×4 (07:19→20:23)
[2022-09-30] MEDS: Diltiazem 120 MG Cap.CD PO SCH (08:23)
[2022-09-30] MEDS: Carvedilol 12.5 MG Tab PO SCH ×2 (08:24→20:25)
[2022-09-30] MEDS: Losartan 50 MG Tab PO SCH (08:25)
[2022-09-30] MEDS: atorvaSTATin 20 MG Tab PO SCH (08:26)
[2022-09-30] MEDS: Hydrochlorothiazide 25 MG Tab PO SCH (08:27)
[2022-09-30] MEDS: Tamsulosin 0.4 MG Cap.ER PO SCH (08:27)
[2022-09-30] MEDS: Aspirin 81 MG Tab.EC PO SCH (08:28)
[2022-09-30] MEDS: Enoxaparin 40 MG/0.4 ML Syringe SUBCUT SCH (08:29)
[2022-09-30] MEDS: Buprenorphine/Naloxone 1 TAB, Buprenorphine/Naloxone 2 TAB SL SCH ×2 (08:39)
[2022-09-30] MEDS: predniSONE 20 MG Tab PO SCH ×2 (10:21→10:30)
[2022-09-30] MEDS: Levofloxacin/Dextrose 5%-Water 750 MG in Premix Bag 1 BAG IV SCH (11:19)
[2022-09-30] MEDS ORDERED: Sodium Chloride 0.9% 1,000 ML IV SCH (16:00)
[2022-09-30] MEDS: Doxepin 25 MG Cap PO SCH (20:25)
[2022-10-01] MEDS: Insulin Lispro 100 Unit/ML 3 ML KwikPen SUBCUT SCH (07:43)
[2022-10-01] MEDS: Albuterol/Ipratropium 3.0-0.5 MG/3 ML Neb Soln NEB SCH ×2 (07:59→11:11)
[2022-10-01] MEDS: Gabapentin 400 MG Cap PO SCH (09:15)
[2022-10-01] MEDS: predniSONE 20 MG Tab PO SCH (09:15)
[2022-10-01] MEDS: Carvedilol 12.5 MG Tab PO SCH (09:17)
[2022-10-01] MEDS: Diltiazem 120 MG Cap.CD PO SCH (09:19)
[2022-10-01] MEDS: atorvaSTATin 20 MG Tab PO SCH (09:22)
[2022-10-01] MEDS: Losartan 50 MG Tab PO SCH (09:23)
[2022-10-01] MEDS: Enoxaparin 40 MG/0.4 ML Syringe SUBCUT SCH (09:23)
[2022-10-01] MEDS: Tamsulosin 0.4 MG Cap.ER PO SCH (09:24)
[2022-10-01] MEDS: Aspirin 81 MG Tab.EC PO SCH (09:25)
[2022-10-01] MEDS: Hydrochlorothiazide 25 MG Tab PO SCH (09:42)
[2022-10-01] MEDS: Buprenorphine/Naloxone 1 TAB, Buprenorphine/Naloxone 2 TAB SL SCH ×2 (09:42)
[2022-10-01 11:16] VITALS: BP 127/64
[2022-10-01 14:48] VITALS: PULSE 82
== END 2022-10-01 11:42 | disposition home or self-care (01) | DRG 193 ==
LOC: JP.ED 05:32 → JP.ICU 08:08
PROVIDERS: ADMIT Hospitalist; ATTEND Hospitalist
PROC: 5A09457 Assistance with Respiratory Ventilation, 24-96 Consecutive Hours, Continuous Positive Airway Pressure (ICD-10-PCS; principal; 2022-09-28)
DX: J96.02 Acute respiratory failure with hypercapnia (principal); J96.01 Acute respiratory failure with hypoxia; J18.9 Pneumonia, unspecified organism; Z99.81 Dependence on supplemental oxygen; E86.0 Dehydration; G93.49 Other encephalopathy; R29.6 Repeated falls; J96.21 Acute and chronic respiratory failure with hypoxia; E11.65 Type 2 diabetes mellitus with hyperglycemia; J44.0 Chronic obstructive pulmonary disease with (acute) lower respiratory infection; E78.00 Pure hypercholesterolemia, unspecified; Z68.41 Body mass index [BMI] 40.0-44.9, adult; J44.1 Chronic obstructive pulmonary disease with (acute) exacerbation; E66.01 Morbid (severe) obesity due to excess calories; E78.5 Hyperlipidemia, unspecified; F41.9 Anxiety disorder, unspecified; Z20.822 Contact with and (suspected) exposure to COVID-19; E11.9 Type 2 diabetes mellitus without complications; F32.A Depression, unspecified; I10 Essential (primary) hypertension; Z90.89 Acquired absence of other organs; Z98.890 Other specified postprocedural states; Z79.899 Other long term (current) drug therapy; Z79.52 Long term (current) use of systemic steroids; Z79.4 Long term (current) use of insulin; Z79.82 Long term (current) use of aspirin; Z88.0 Allergy status to penicillin
CPT/HCPCS: 0241U; 36415; 36600; 71045; 71045-26; 80048; 80053; 80202; 82009; 82140; 82803; 82947; 83605; 83690; 83735; 83880; 84145; 85025; 87040; 93005; 93010; 94640; 94660; 99223; 99232; 99238; 99285; A9270-GY; J0574-GY; J0692; J1650; J1815; J1956; J2060; J2920; J3370; J3490; J7030; J7040; J7050; J7120; J7512; J7620

== ENCOUNTER 2023-03-11 15:19 | Emergency (ER) | payer MEDICARE, BC ==
[2023-03-11] MEDS ORDERED: Albuterol/Ipratropium 3.0-0.5 MG/3 ML Neb Soln NEB ONE (15:39)
[2023-03-11] MEDS ORDERED: methylPREDNISolone Sod Succ 125 MG in Dextrose 5% in Water 100 ML IV ONE ×2 (15:40)
[2023-03-11] MEDS ORDERED: methylPREDNISolone Sodium Succinate 125 MG/2 ML SDV IVPUSH ONE (15:42)
[2023-03-11 15:46] LABS: HEMATOCRIT 42.4 % (38.4-49.7); HEMOGLOBIN 13.7 g/dL (12.9-16.9); MEAN CORPUSCULAR HEMOGLOBIN 30.2 pg (31.6-35.5); MEAN CORPUSCULAR HGB CONC 32.3 g/dL (31.6-35.5); MEAN CORPUSCULAR VOLUME 93.4 fL (81.4-99.0); RED BLOOD CELL COUNT 4.54 M/uL (4.14-5.76)
[2023-03-11 16:13] LABS: CALCIUM 8.7 mg/dL (8.5-10.1); CREATININE 1.1 mg/dL (0.8-1.3); EST CRCL DRUG DOSING (CG) 67.29 mL/min; POTASSIUM,K 4.3 mmol/L (3.6-5.2); TROPONIN I HIGH SENSITIVITY 7.4 pg/mL (<=60.3)
[2023-03-11 16:15] LABS: ANION GAP 9.3 mmol/L (5.0-14.0)
[2023-03-11] MEDS ORDERED: Codeine/guaiFENesin 10-100 MG/5 ML Syrup 5 ML Cup PO ONE (16:50)
[2023-03-11 17:27] VITALS: BP 124/59; PULSE 60
== END 2023-03-11 17:38 | disposition home or self-care (01) ==
LOC: JP.ED 15:19
DX: J44.1 Chronic obstructive pulmonary disease with (acute) exacerbation (principal); E11.9 Type 2 diabetes mellitus without complications; E78.00 Pure hypercholesterolemia, unspecified; I10 Essential (primary) hypertension; E66.9 Obesity, unspecified; Z79.51 Long term (current) use of inhaled steroids; Z88.0 Allergy status to penicillin; Z79.84 Long term (current) use of oral hypoglycemic drugs; Z79.899 Other long term (current) drug therapy; Z68.41 Body mass index [BMI] 40.0-44.9, adult
CPT/HCPCS: 36415; 71046; 80048; 83880; 84484; 85027; 86140; 93005; 94640; 96374; 99285; A9270; J2930; J7620

== ENCOUNTER 2023-10-05 08:09 | Day surgery (SDC) | payer MEDICARE, BC ==
[2023-10-05] MEDS: Sodium Chloride 0.9% 10 ML Syringe FLUSH PRN (08:53)
[2023-10-05 09:20] VITALS: BP 146/100; PULSE 72
== END 2023-10-05 09:37 | disposition home or self-care (01) ==
LOC: JP.SDS 08:09
PROVIDERS: ATTEND Ophthalmology
DX: E11.36 Type 2 diabetes mellitus with diabetic cataract (principal); H57.03 Miosis; E11.22 Type 2 diabetes mellitus with diabetic chronic kidney disease; I13.0 Hypertensive heart and chronic kidney disease with heart failure and stage 1 through stage 4 chronic kidney disease, or unspecified chronic kidney disease; N18.2 Chronic kidney disease, stage 2 (mild); I50.9 Heart failure, unspecified; I42.9 Cardiomyopathy, unspecified; F41.9 Anxiety disorder, unspecified; E66.9 Obesity, unspecified; Z68.41 Body mass index [BMI] 40.0-44.9, adult; Z88.0 Allergy status to penicillin
CPT/HCPCS: 82947; J3490; V2632

== ENCOUNTER 2023-10-19 08:07 | Day surgery (SDC) | payer MEDICARE, BC ==
[2023-10-19] MEDS: Sodium Chloride 0.9% 10 ML Syringe FLUSH PRN (08:46)
[2023-10-19] MEDS ORDERED: Midazolam 1 MG/ML 2 ML SDV ONE (08:47)
[2023-10-19 10:44] VITALS: BP 117/67; PULSE 67
== END 2023-10-19 09:45 | disposition home or self-care (01) ==
LOC: JP.SDS 08:07
PROVIDERS: ATTEND Ophthalmology
DX: E11.36 Type 2 diabetes mellitus with diabetic cataract (principal); H57.03 Miosis; I10 Essential (primary) hypertension; I12.9 Hypertensive chronic kidney disease with stage 1 through stage 4 chronic kidney disease, or unspecified chronic kidney disease; E11.22 Type 2 diabetes mellitus with diabetic chronic kidney disease; N18.9 Chronic kidney disease, unspecified; Z88.0 Allergy status to penicillin
CPT/HCPCS: 66982; 82947; J2250; J3490; V2632